=== PATIENT | male | born 1985 | race Caucasian/White ===

== ENCOUNTER 2020-12-14 13:05 | Inpatient (IN) | payer OTHER, SELFPAY ==
[2020-12-14] VITALS (12 sets, daily range): BP systolic 126–168; BP diastolic 85–102; PULSE 70–108; RESP 18–25; TEMP 36.8–38.3; O2SAT 72–98; BMI 54.2
--- NOTE | 2020-12-14 14:16 | XRR_ITS ---
PROCEDURE INFORMATION: Exam: XR Chest Exam date and time: 12/14/2020 2:16 PM Age: 35 years old Clinical indication: Patient HX: Coughing x 1 week; Additional info: Dypsnea TECHNIQUE: Imaging protocol: XR of the chest. Views: 1 view. COMPARISON: No relevant prior studies available. FINDINGS: Lungs: Moderate to severe bilateral pulmonary opacities which appear to be predominantly peripheral most consistent with Covid-19 pneumonia versus other viral pneumonia. Pleural spaces: Unremarkable. No pleural effusion. No pneumothorax. Heart/Mediastinum: Unremarkable. No cardiomegaly. Bones/joints: Unremarkable. XR/XR chest 1V portable [id number] IMPRESSION: Moderate to severe bilateral pulmonary opacities which appear to be predominantly peripheral most consistent with Covid-19 pneumonia versus other viral pneumonia.
--- NOTE | 2020-12-14 14:17 | PC.PHAR ---
pt and pts family states the pt takes no rx medications-states the pt has only been taking tylenol prn
--- NOTE | 2020-12-14 14:39 | ED_ITS ---
HPI - COVID General: Chief Complaint: COVID symptoms Stated Complaint: LOW 02 Time Seen by Provider: 12/14/20 14:03 Triage information: Has fever, cough or shortness of breath . No known COVID + exposure last 14 days History of Present Illness: HPI Narrative: 35-year-old male who presents to the emergency room with complaints of fever shortness of breath and cough some anosmia. He has not had any diarrhea. On presentation here he still has a low- grade fever he has used some Tylenol at home. He took 2 home Covid swabs [id number] antigen test both of which were negative. He has not been vaccinated nor is he previously been known to have Covid. He is mildly hypertensive on presentation here he is also noted to be hypoxic with an oxygen saturation at 70% on room air, initially improved into the 90s on 4 L/min o xygen. Patient sats decreased and is now requiring 6 L by nasal cannula in the ER to maintain his oxygen saturations. He has no known history of any chronic respiratory illnesses. MD complaint: has COVID symptoms Prior covid testing: yes, results known COVID 19 common symptoms: positive chills, cough, non-productive cough, dyspnea, fatigue, body aches, loss of sense of smell and/or taste, throat pain and nasal congestion; negative nausea, vomiting or diarrhea COVID 19 other sytmptoms: positive requiring oxygen; negative chest pain Onset (ago): day(s) Severity: mild Pertinent comorbid conditions: hypertension and obesity Treatment prior to arrival: acetaminophen COVID Results: SARS-CoV-2 Antigen (Rapid) Negative (Negative) 12/14/20 14:45 12/14/20 Nasal/Oral Coronavirus 2019 PCR Detected H 12/14/20 14:45 12/14/20 Review of Systems Const: Reports: chills, body aches and fatigue ENMT: Reports: throat pain and nasal congestion Card: Denies: chest pain, edema, dyspnea on exertion or orthopnea Resp: Reports: dyspnea and non-productive cough GI: Denies: abdominal pain, nausea, vomiting, hematemesis, coffee ground emesis, diarrhea, constipation, bloating, hematochezia or melena : Denies: flank pain, dysuria, urinary frequency or urinary urgency Skin/Breast: Denies: rash or pruritus [facility] PFSH: Medical History (Updated 12/16/20 @ 16:05 by Micheal Bates DO) No pertinent past medical history Surgical History (Updated 12/15/20 @ 15:17 by Flory Nick MD) No pertinent past surgical history Physical Exam Const: COMMON NORMALS: no acute distress GENERAL APPEARANCE: cooperative and comfortable ORIENTATION/CONSCIOUSNESS: Yes awake, Yes oriented to person, Yes oriented to place and Yes oriented to time HENMT: COMMON NORMALS: normocephalic, atraumatic and hearing grossly normal bilaterally HEAD & SCALP: normocephalic and atraumatic Resp: AUSCULTATION: crackles and diminished lung sounds Cardio: COMMON NORMALS: regular rhythm and No murmurs present (Cardio) RATE: tachycardic RHYTHM: regular rhythm GI: COMMON NORMALS: Soft to palpation and No hepatosplenomegaly present AUSCULTATION: Yes normoactive bowel sounds PALPATION: Yes Soft to palpation, No Tenderness to palpation present (GI), No Guarding due to palpation present (GI) and Yes No hepatosplenomegaly present Extremity: COMMON NORMALS: normal to inspection, capillary refill normal, no clubbing, cyanosis or edema, no calf tenderness and no pedal edema Neuro: SENSORIUM/ORIENTATION: Yes oriented to person, Yes oriented to place and Yes oriented to time Skin: COMMON NORMALS: no rashes or lesions noted GENERAL SKIN EXAM: no rashes or lesions noted Course Vital Signs: Vital signs: Vital Signs Temperature 98.5 F 12/16/20 10:00 Pulse Rate 96 12/16/20 14:16 Respiratory Rate 24 H 12/16/20 14:16 Blood Pressure 151/84 12/16/20 14:00 Pulse Oximetry 87 L 12/16/20 14:16 MDM - COVID MDM Narrative: Medical decision making narrative: Patient progressively worsened while in the emergency room initially was 72% on room air were able to improve that with nasal cannula initially required for the knee worsened requiring 6-week and switch him to heated high flow he is requiring 40 L/min. Chest x-ray is very convincing for Covid pneumonitis. He has no pulmonary emboli. Very concerning his rapid decline while in the emergency room receiving work-up. Reviewed findings with the patient initially he was demanding to be treated as an outpatient informed patient we could not get him enough oxygen in outpatient setting to maintain his oxygen sats and if he left the emergency room he would likely go into respiratory arrest and outside of the hospital setting would from that. Ultimately he did agree to stay. At his request I contacted his and reviewed the findings with her course of care. We star teresa him on remdesivir and dexamethasone as well as supplemental oxygen he likely will also need to be considered for Actemra which I reviewed with the patient and his discussed the hospitalist orders written. Lab Data: Labs: Lab Results 12/14/20 12/14/20 12/14/20 Range/Units 14:45 14:45 14:45 WBC 4.2 (4.0-10.0) 10^3/ uL RBC 5.23 (4.1-5.3) 10^6/u L Hgb 15.8 (11.7-16.6) g/dL Hct 46.0 (42.0-52.0) % MCV 88.0 (80-94) fl MCH 30.2 (28.0-34.0) pg MCHC 34.3 (30.0-36.0) g/dL RDW 13.2 (12.1-15.1) % Plt Count 149 (130-400) 10^3/c mm MPV 11.9 H (7.4-10.4) fL Neut % (Auto) 72.0 % Lymph % (Auto) 19.6 % Tucker % (Auto) 8.0 % Eos % (Auto) 0.0 % Baso % (Auto) 0.2 % Neut # (Auto) 3.04 (1.8-7.7) 10^3/u L Lymph # (Auto) 0.8 (0.8-4.8) 10^3/u L Tucker # (Auto) 0.3 (0.2-0.9) 10^3/u L Eos # (Auto) 0.0 (0.0-0.8) 10^3/u L Baso # (Auto) 0.0 (0.0-0.1) 10^3/u L Nucleated RBC % (a uto) 0 % Nucleated RBCs # 0.0 /100WBC D-Dimer Cancelled Specimen Type Arterial Sample Site Brachial, left ABG pH 7.47 H (7.35-7.45) ABG pCO2 40.3 (35-45) mmHg ABG pO2 59.1 L (80.0-100.0) mmH g ABG HCO3 29.0 H (22-26) mmol/L ABG Base Excess 4.8 H (-2.0-2.0) mmol/ L Dewayne Test Pos Hematocrit 50.1 (42-52) % O2 Delivery Device Nc O2 Liters/Min 6.0 % Group Fitness Assistant Department Head ID Cak Sodium Potassium Chloride Carbon Dioxide Anion Gap BUN Creatinine GFR Calculation Glucose Calculated Osmolal ity Lactic Acid Calcium Total Bilirubin AST ALT Alkaline Phosphata se Troponin T Gen 5 n g/L (0-15) ng/L C-Reactive Protein Total Protein Albumin Globulin Procalcitonin Nasal/Oral COVID-1 9 PCR SARS-CoV-2 Ag (Rap id) (Negative) 12/14/20 12/14/20 12/14/20 Range/Units 14:45 14:45 14:45 WBC (4.0-10.0) 10^3/ uL RBC (4.1-5.3) 10^6/u L Hgb (11.7-16.6) g/dL Hct (42.0-52.0) % MCV (80-94) fl MCH (28.0-34.0) pg MCHC (30.0-36.0) g/dL RDW (12.1-15.1) % Plt Count (130-400) 10^3/c mm MPV (7.4-10.4) fL Neut % (Auto) % Lymph % (Auto) % Tucker % (Auto) % Eos % (Auto) % Baso % (Auto) % Neut # (Auto) (1.8-7.7) 10^3/u L Lymph # (Auto) (0.8-4.8) 10^3/u L Tucker # (Auto) (0.2-0.9) 10^3/u L Eos # (Auto) (0.0-0.8) 10^3/u L Baso # (Auto) (0.0-0.1) 10^3/u L Nucleated RBC % (a uto) % Nucleated RBCs # /100WBC D-Dimer Specimen Type Sample Site ABG pH (7.35-7.45) ABG pCO2 (35-45) mmHg ABG pO2 (80.0-100.0) mmH g ABG HCO3 (22-26) mmol/L ABG Base Excess (-2.0-2.0) mmol/ L Dewayne Test Hematocrit (42-52) % O2 Delivery Device O2 Liters/Min % Group Fitness Assistant Department Head ID Sodium Cancelled Potassium Cancelled Chloride Cancelled Carbon Dioxide Cancelled Anion Gap Cancelled BUN Cancelled Creatinine Cancelled GFR Calculation Cancelled Glucose Cancelled Calculated Osmolal ity Cancelled Lactic Acid Cancelled Calcium Cancelled Total Bilirubin Cancelled AST Cancelled ALT Cancelled Alkaline Phosphata se Cancelled Troponin T Gen 5 n g/L (0-15) ng/L C-Reactive Protein Cancelled Total Protein Cancelled Albumin Cancelled Globulin Cancelled Procalcitonin Cancelled Nasal/Oral COVID-1 9 PCR Detected H SARS-CoV-2 Ag (Rap id) (Negative) 12/14/20 12/14/20 12/14/20 Range/Units 14:45 15:29 15:29 WBC (4.0-10.0) 10^3/ uL RBC (4.1-5.3) 10^6/u L Hgb (11.7-16.6) g/dL Hct (42.0-52.0) % MCV (80-94) fl MCH (28.0-34.0) pg MCHC (30.0-36.0) g/dL RDW (12.1-15.1) % Plt Count (130-400) 10^3/c mm MPV (7.4-10.4) fL Neut % (Auto) % Lymph % (Auto) % Tucker % (Auto) % Eos % (Auto) % Baso % (Auto) % Neut # (Auto) (1.8-7.7) 10^3/u L Lymph # (Auto) (0.8-4.8) 10^3/u L Tucker # (Auto) (0.2-0.9) 10^3/u L Eos # (Auto) (0.0-0.8) 10^3/u L Baso # (Auto) (0.0-0.1) 10^3/u L Nucleated RBC % (a uto) % Nucleated RBCs # /100WBC D-Dimer 1.34 H Specimen Type Sample Site ABG pH (7.35-7.45) ABG pCO2 (35-45) mmHg ABG pO2 (80.0-100.0) mmH g ABG HCO3 (22-26) mmol/L ABG Base Excess (-2.0-2.0) mmol/ L Dewayne Test Hematocrit (42-52) % O2 Delivery Device O2 Liters/Min % Group F[employer] Assistant Department Head ID Sodium Potassium Chloride Carbon Dioxide Anion Gap BUN Creatinine GFR Calculation Glucose Calculated Osmolal ity Lactic Acid 1.1 Calcium Total Bilirubin AST ALT Alkaline Phosphata se Troponin T Gen 5 n g/L (0-15) ng/L C-Reactive Protein Total Protein Albumin Globulin Procalcitonin Nasal/Oral COVID-1 9 PCR SARS-CoV-2 Ag (Rap id) Negative (Negative) 12/14/20 12/14/20 Range/Units 15:29 15:29 WBC (4.0-10.0) 10^3/ uL RBC (4.1-5.3) 10^6/u L Hgb (11.7-16.6) g/dL Hct (42.0-52.0) % MCV (80-94) fl MCH (28.0-34.0) pg MCHC (30.0-36.0) g/dL RDW (12.1-15.1) % Plt Count (130-400) 10^3/c mm MPV (7.4-10.4) fL Neut % (Auto) % Lymph % (Auto) % Tucker % (Auto) % Eos % (Auto) % Baso % (Auto) % Neut # (Auto) (1.8-7.7) 10^3/u L Lymph # (Auto) (0.8-4.8) 10^3/u L Tucker # (Auto) (0.2-0.9) 10^3/u L Eos # (Auto) (0.0-0.8) 10^3/u L Baso # (Auto) (0.0-0.1) 10^3/u L Nucleated RBC % (a uto) % Nucleated RBCs # /100WBC D-Dimer Specimen Type Sample Site ABG pH (7.35-7.45) ABG pCO2 (35-45) mmHg ABG pO2 (80.0-100.0) mmH g ABG HCO3 (22-26) mmol/L ABG Base Excess (-2.0-2.0) mmol/ L Dewayne Test Hematocrit (42-52) % O2 Delivery Device O2 Liters/Min % Group F[employer] Assistant Department Head ID Sodium 134 L Potassium 3.9 Chloride 94 L Carbon Dioxide 29 Anion Gap 14.9 BUN 6 Creatinine 0.7 GFR Calculation 129.9 Glucose 170 H Calculated Osmolal ity 280 L Lactic Acid Calcium 8.3 L Total Bilirubin 0.4 AST 96 H ALT 56 H Alkaline Phosphata se 48 Troponin T Gen 5 n g/L 6 (0-15) ng/L C-Reactive Protein 131.9 H Total Protein 7.2 Albumin 3.4 L Globulin 3.8 Procalcitonin 0.25 Nasal/Oral COVID-1 9 PCR SARS-CoV-2 Ag (Rap id) (Negative) COVID Results: SARS-CoV-2 Antigen (Rapid) Negative (Negative) 12/14/20 14:45 12/14/20 Nasal/Oral Coronavirus 2019 PCR Detected H 12/14/20 14:45 12/14/20 Discharge Plan Discharge Patient Disposition: Home Admit Provider: Flory Nick Clinical Impression: Pneumonia due to 2019-nCoV, Hypoxia, Morbid obesity, Respiratory failure Condition: Stable Coding Level of Care Code ED Beater Tender for Chg Fwd Exam Comprehensive
[2020-12-14 14:56] LABS: ABG PCO2 40.3 mmHg (35-45); ABG PH Result 7.47 (7.35-7.45); Arterial Blood Gas Hematocrit 50.1 % (42-52); Base Excess ABG 4.8 mmol/L (-2.0-2.0); Blood Gas Allen Test Pos; Blood Gas Operator Identificat CAK; Blood Gas Sample Site Brachial, left; Blood Gas Sample Type Arterial; Oxygen Device NC; PO2 ABG 59.1 mmHg (80.0-100.0)
[2020-12-14 14:59] LABS: Basophils % 0.2 %; Hemoglobin 15.8 g/dL (11.7-16.6); Lymphocytes # 0.8 10^3/uL (0.8-4.8); Lymphocytes % 19.6 %; Mean Corpuscular HGB Conc 34.3 g/dL (30.0-36.0); Mean Corpuscular Hemoglobin 30.2 pg (28.0-34.0); Mean Platelet Volume 11.9 fL (7.4-10.4); Monocytes # 0.3 10^3/uL (0.2-0.9); Neutrophils # 3.04 10^3/uL (1.8-7.7); Nucleated Red Blood Cells % 0 %; Platelet Count 149 10^3/cmm (130-400); Red Blood Count 5.23 10^6/uL (4.1-5.3); Red Cell Distribution Width 13.2 % (12.1-15.1); White Blood Count 4.2 10^3/uL (4.0-10.0)
[2020-12-14 15:31] LABS: SARS Covid-2 Antigen Negative (Negative)
[2020-12-14 15:54] LABS: D Dimer 1.34 ug/mIFEU (0-0.59)
--- NOTE | 2020-12-14 15:57 | CTR_ITS ---
PROCEDURE INFORMATION: Exam: CTA Chest With Contrast Exam date and time: 12/14/2020 3:57 PM Age: 35 years old Clinical indication: Cough and shortness of breath; Patient HX: Best images due to body habitus and iv location in left wrist; Additional info: Covid/hypoxia TECHNIQUE: Imaging protocol: Computed tomographic angiography of the chest with contrast. 3D rendering (Not supervised by radiologist): MIP and/or 3D reconstructed images were created by the technologist. Radiation optimization: All CT scans at this facility use at least one of these dose optimization techniques: automated exposure control; mA and/or kV adjustment per patient size (includes targeted exams where dose is matched to clinical indication); or iterative reconstruction. Contrast material: OMNI 350; Contrast volume: 95 ml; Contrast route: INTRAVENOUS (IV); COMPARISON: CR (CHEST, ) 12/14/2020 2:27 PM RADIATION DOSE METRICS: Total DLP (mGy-cm): 1460.61 FINDINGS: Pulmonary arteries: No pulmonary embolus or aortic dissection. Aorta: Unremarkable. No aortic aneurysm. No aortic dissection. Lungs: Multiple rounded geographic ground-glass opacities with some consolidation consistent with moderate to severe bilateral Covid-19 pneumonia versus other viral pneumonia. Pleural spaces: Unremarkable. No pneumothorax. No pleural effusion. Heart: Unremarkable. No cardiomegaly. No pericardial effusion. Lymph nodes: Unremarkable. No enlarged lymph nodes. Liver: Severe fatty infiltration of the liver. Moderate hepatosplenomegaly impression. 25 cm hepatomegaly. Spleen: 16.6 x 13.8 cm moderate splenomegaly. Bones/joints: Mild thoracic spondylosis. Soft tissues: Unremarkable. CT/CT angio chest PE protcl [id number] IMPRESSION: 1. Multiple rounded geographic ground-glass opacities with some consolidation consistent with moderate to severe bilateral Covid-19 pneumonia versus other viral pneumonia. 2. Severe fatty infiltration of the liver. 3. No pulmonary embolus or aortic dissection. Radiation Dose CTDIVOL = (mGy): DLP = 1460.61 (mGy-cm)
[2020-12-14 15:58] LABS: Lactic Sepsis W/Reflex 1.1 mmol/L (0.5-2.2)
[2020-12-14 16:06] LABS: Alanine Aminotransferase 56 U/L (0-41); Albumin Level 3.4 g/dL (3.5-5.2); Alkaline Phosphatase 48 IU/L (40-130); Anion Gap 14.9 (5-19); Aspartate Amino Transferase 96 U/L (0-40); Blood Urea Nitrogen 6 mg/dL (6-20); C Reactive Protein 131.9 mg/L (0.0-4.9); Calcium 8.3 mg/dL (8.5-10.5); Carbon Dioxide 29 mmol/L (22-29); Chloride 94 mmol/L (98-107); Globulin 3.8 g/dL (1.3-4.6); Glomerular Filtration Rate 129.9 mL/min (90-130); Glucose 170 mg/dL (65-115); Osmolality Calculated 280 mOsm/kg (285-295); Potassium 3.9 mmol/L (3.5-5.1); Sodium 134 mmol/L (136-145); Total Bilirubin 0.4 mg/dL (0.15-1.2); Total Protein 7.2 g/dL (6.6-8.7)
[2020-12-14 16:12] LABS: Procalcitonin 0.25 ng/mL (0-0.5)
[2020-12-14] MEDS: dexamethasone 10 mg/mL INJ 6 MG IVP (16:27)
[2020-12-14] MEDS: remdesivir 200 MG in sodium chloride 0.9% (100 ml) 60 ML 100 MG IV (16:28)
[2020-12-14] MEDS: acetaminophen 1,000 MG/100 ML PIGGYBACK 400 MG IV (18:24)
[2020-12-14] MEDS: iohexol 350 mg/mL 100 mL Btl IV (20:05)
--- NOTE | 2020-12-14 20:23 | P.HP_ITS ---
Providers/Chief Complaint Admitting Physician: Flory Nick MD Chief Complaint: LOW 02 History of Present Illness Ricardo Don is a 35 year old male presenting with one week of fever, chills, shortness of breath and anosmia over the past week. On presentation here he was noted to be hypoxic with an oxygen saturation at 72 L/min on room air. Patient was initially requiring 6 L by nasal cannula with 02 saturation escalating quic kly to heated hi flow 70% fi02 at 40lpm. CTA chest negative for PE, however shows extensive diffuse B/L GGOs concerning COVID 19 pneumonia. Rapid Covid Ag negative, PCR sent and pending. He has been started on steorids and received first dose remdisivir 200mg x 1. Review of Systems General: Reports: 10 or more systems reviewed and unremarkable except in HPI and below Const: Reports: fever(s), chills and body aches Eyes: Denies: change in vision or blurry vision ENMT: Reports: hoarseness; Denies: throat pain, enlarged tonsils, odynophagia or nasal congestion Card: Denies: chest pain, palpitations, irregular heart rhythm, edema, swelling of feet/ankles, lightheadedness, pre-syncope, dyspnea on exertion or orthopnea Resp: Denies: dyspnea, productive cough, non-productive cough, wheezing, s tridor, pain on inspiration, change in phlegm color, hemoptysis or chest congestion GI: Denies: abdominal pain, nausea, vomiting, hematemesis, coffee ground emesis, dysphagia, heartburn, diarrhea, constipation, GI cramping, change in stool character, hematochezia or melena : Denies: flank pain, dysuria, urinary frequency, urinary urgency, urinary hesitancy or hematuria Musc: Denies: neck pain, back pain, extremity pain, joint swelling, joint warmth or deformity Neuro: Denies: headache(s), numbness in extremities, weakness in extremities, sensory changes, difficulty walking, frequent falls, dizziness, vertigo, behavioral changes, Slurred speech present or seizure-like activity Psych: Denies: anxiety, depression, suicidal ideation or homicidal ideation Endo: Denies: polyuria, polydipsia, tired all the time, cold intolerance or hot flashes Santana/Lymph: Denies: easy bruising or easy bleeding Medications/Allergies Home Medications Medication Instructions Recorded Confirmed Last Taken Type acetaminophen [Tylenol Extra 1,000 mg PO Q8H PRN 12/14/20 12/14/20 12/14/20 09:00 History Strength] Allergies Allergy/AdvReac Type Severity Reaction Status Date / Time No Known Allergies Allergy Unverified 12/14/20 14:17 Vitals/I&O/Wt Last Vital Signs Temp 99.3 F 12/14/20 20:20 Pulse 90 12/14/20 20:20 Resp 20 H 12/14/20 20:20 BP 145/85 12/14/20 20:20 Pulse Ox 95 12/14/20 20:20 Weight last 48 hrs Weight 181.437 kg Physical Exam Narrative: EXAM NARRATIVE: General: AO x3, currently on heated Hi flow HEENT: PERRLA, pupils bilaterally equal and reactive, pallors not present Chest: B/L coarse breath sounds CVS: S1-S2 regular, no murmurs, no tachycardia, no gallops, no rubs Abdomen: Soft, nontender, no organomegaly, bowel sounds present Neuro: No focal deficits, no facial deformity, AO x3, power 5/5 in all limbs Data : 12/14/20 14:45 12/14/20 15:29 Other Labs: Laboratory Results WBC 4.2 10^3/uL (4.0-10.0) 12/14/20 14:45 RBC 5.23 10^6/uL (4.1-5.3) 12/14/20 14:45 Hgb 15.8 g/dL (11.7-16.6) 12/14/20 14:45 Hct 46.0 % (42.0-52.0) 12/14/20 14:45 MCV 88.0 fl (80-94) 12/14/20 14:45 MCH 30.2 pg (28.0-34.0) 12/14/20 14:45 MCHC 34.3 g/dL (30.0-36.0) 12/14/20 14:45 RDW 13.2 % (12.1-15.1) 12/14/20 14:45 Plt Count 149 10^3/cmm (130-400) 12/14/20 14:45 MPV 11.9 fL (7.4-10.4) H 12/14/20 14:45 Neut % (Auto) 72.0 % 12/14/20 14:45 Lymph % (Auto) 19.6 % 12/14/20 14:45 [place] % (Auto) 8.0 % 12/14/20 14:45 Eos % (Auto) 0.0 % 12/14/20 14:45 Baso % (Auto) 0.2 % 12/14/20 14:45 Neut # (Auto) 3.04 10^3/uL (1.8-7.7) 12/14/20 14:45 Lymph # (Auto) 0.8 10^3/uL (0.8-4.8) 12/14/20 14:45 [place] # (Auto) 0.3 10^3/uL (0.2-0.9) 12/14/20 14:45 Eos # (Auto) 0.0 10^3/uL (0.0-0.8) 12/14/20 14:45 Baso # (Auto) 0.0 10^3/uL (0.0-0.1) 12/14/20 14:45 Nucleated RBC % (auto) 0 % 12/14/20 14:45 Nucleated RBCs # 0.0 /100WBC 12/14/20 14:45 D-Dimer 1.34 ug/mIFEU (0-0.59) H 12/14/20 15:29 Specimen Type Arterial 12/14/20 14:45 Sample Site Brachial, left 12/14/20 14:45 ABG pH 7.47 (7.35-7.45) H 12/14/20 14:45 ABG pCO2 40.3 mmHg (35-45) 12/14/20 14:45 ABG pO2 59.1 mmHg (80.0-100.0) L 12/14/20 14:45 ABG HCO3 29.0 mmol/L (22-26) H 12/14/20 14:45 ABG Base Excess 4.8 mmol/L (-2.0-2.0) H 12/14/20 14:45 Dewayne Test Pos 12/14/20 14:45 Hematocrit 50.1 % (42-52) 12/14/20 14:45 O2 Delivery Device Nc 12/14/20 14:45 O2 Liters/Min 6.0 % 12/14/20 14:45 Supervisor Tank Storage ID Cak 12/14/20 14:45 Sodium 134 mmol/L (136-145) L 12/14/20 15:29 Potassium 3.9 mmol/L (3.5-5.1) 12/14/20 15:29 Chloride 94 mmol/L (98-107) L 12/14/20 15:29 Carbon Dioxide 29 mmol/L (22-29) 12/14/20 15:29 Anion Gap 14.9 (5-19) 12/14/20 15:29 BUN 6 mg/dL (6-20) 12/14/20 15:29 Creatinine 0.7 mg/dL (0.7-1.2) 12/14/20 15:29 GFR Calculation 129.9 mL/min (90-130) 12/14/20 15:29 Glucose 170 mg/dL (65-115) H 12/14/20 15:29 Calculated Osmolality 280 mOsm/kg (285-295) L 12/14/20 15:29 Lactic Acid 1.1 mmol/L (0.5-2.2) 12/14/20 15:29 Calcium 8.3 mg/dL (8.5-10.5) L 12/14/20 15:29 Total Bilirubin 0.4 mg/dL (0.15-1.2) 12/14/20 15:29 AST 96 U/L (0-40) H 12/14/20 15:29 ALT 56 U/L (0-41) H 12/14/20 15:29 Alkaline Phosphatase 48 IU/L (40-130) 12/14/20 15:29 C-Reactive Protein 131.9 mg/L (0.0-4.9) H 12/14/20 15:29 Total Protein 7.2 g/dL (6.6-8.7) 12/14/20 15:29 Albumin 3.4 g/dL (3.5-5.2) L 12/14/20 15:29 Globulin 3.8 g/dL (1.3-4.6) 12/14/20 15:29 Procalcitonin 0.25 ng/mL (0-0.5) 12/14/20 15:29 SARS-CoV-2 Ag (Rapid) Negative (Negative) 12/14/20 14:45 Impressions Chest X-Ray 12/14/20 14:16 IMPRESSION: Moderate to severe bilateral pulmonary opacities which appear to be predominantly peripheral most consistent with Covid-19 pneumonia versus other viral pneumonia. Chest CTA 12/14/20 15:57 IMPRESSION: 1. Multiple rounded geographic ground-glass opacities with some consolidation consistent with moderate to severe bilateral Covid-19 pneumonia versus other viral pneumonia. 2. Severe fatty infiltration of the liver. 3. No pulmonary embolus or aortic dissection. Radiation Dose CTDIVOL = (mGy): DLP = 1460.61 (mGy-cm) 12/14/20 14:45 ABG pH 7.47 H ABG pCO2 40.3 ABG pO2 59.1 L ABG HCO3 29.0 H ABG Base Excess 4.8 H Micro: Microbiology 12/14/20 14:44 Blood Culture - Preliminary Blood SPECIMEN COLLECTED 12/14/20 14:45 Blood Culture - Preliminary Blood SPECIMEN COLLECTED A&P Assessment and plan (1) Pneumonia: Status: Acute Qualifiers: Pneumonia type: due to unspecified organism Laterality: bilateral Lung location: unspecified part of lung Qualified Code(s): J18.9 - Pneumonia, unspecified organism (2) Hypoxia: Status: Acute Additional A&P Information B/L pneumonia with one week history of fever, chills, myalgias with CT chest with B/L extensive infiltrates concerning for COVID 19 pneumonia Awaiting confirmatory PCR testing , rapid Ag negative Dexamethasone 6 mg iv daily. Remdesivir 200mg iv received in ER, further doses based on COVID 19 PCR testing. Scheduled nebulization with duonebs and budesonide Pulmonary toilet with incentive spirometry flutter valve. We will monitor inflammatory markers including CRP, D-dimer. D-dimer elevated. CTA negative for pulmonary embolism. Supplemental 02 to keep saturation >92% Bipap prn DVT ppx: Lovenox 40 Full code Attestations Medical Necessity Statement*: requires >2midnight admission for treatment of B/L pneumonia with hypoxics respiratory failure, suspected 2/2 COVID 19 pneumonia Coding Level of Care Code Acute Patient Care Provider for [facility] Diagnoses Pneumonia J18.9 Pneumonia type: due to unspecified organism Laterality: bilateral Lung location: unspecified part of lung Hypoxia R09.02
[2020-12-14 21:10] LABS: Troponin T (5th) Once 6 ng/L (0-15)
--- NOTE | 2020-12-14 22:32 | PC.NURSE ---
Patient arrived to ICU from ER at 2205.
[2020-12-14] MEDS: cefTRIAXone 1,000 MG in sodium chloride 0.9% (plus) 50 ML 100 MG IV (22:47)
[2020-12-14] MEDS: enoxaparin 40 mg/0.4 mL Syringe SUBCUT (22:50)
[2020-12-14] MEDS: dexamethasone 4 mg/mL INJ 6 MG IVP (23:22)
[2020-12-14] MEDS: azithromycin 500 MG in sodium chloride 0.9% 250 ML 250 MG IV (23:23)
[2020-12-14] MEDS: ipratropium-albuterol 3 mL Neb INHALATION (23:49)
[2020-12-15] VITALS (201 sets, daily range): BP systolic 122–226; BP diastolic 70–123; PULSE 69–133; RESP 7–35; TEMP 36.8–37.7; O2SAT 77–95
[2020-12-15] MEDS: amlodipine 10 mg Tablet PO (03:11)
[2020-12-15] MEDS: ipratropium-albuterol 3 mL Neb INHALATION ×4 (03:43→20:35)
[2020-12-15 05:54] LABS: Hematocrit 46.5 % (42.0-52.0); Hemoglobin 15.6 g/dL (11.7-16.6); Lymphocytes # 0.4 10^3/uL (0.8-4.8); Lymphocytes % 11.7 %; Mean Corpuscular HGB Conc 33.5 g/dL (30.0-36.0); Mean Corpuscular Hemoglobin 30.2 pg (28.0-34.0); Mean Corpuscular Volume 89.9 fl (80-94); Mean Platelet Volume 10.5 fL (7.4-10.4); Monocytes # 0.2 10^3/uL (0.2-0.9); Monocytes % 6.1 %; Neutrophils # 2.52 10^3/uL (1.8-7.7); Neutrophils % 81.6 %; Nucleated Red Blood Cells % 0 %; Platelet Count 180 10^3/cmm (130-400); Red Blood Count 5.17 10^6/uL (4.1-5.3); Red Cell Distribution Width 12.9 % (12.1-15.1); White Blood Count 3.1 10^3/uL (4.0-10.0)
[2020-12-15 06:17] LABS: Alanine Aminotransferase 54 U/L (0-41); Albumin Level 3.1 g/dL (3.5-5.2); Alkaline Phosphatase 47 IU/L (40-130); Anion Gap 15.5 (5-19); Aspartate Amino Transferase 76 U/L (0-40); Blood Urea Nitrogen 7 mg/dL (6-20); C Reactive Protein 169.5 mg/L (0.0-4.9); Calcium 8.1 mg/dL (8.5-10.5); Carbon Dioxide 26 mmol/L (22-29); Chloride 95 mmol/L (98-107); Globulin 4.2 g/dL (1.3-4.6); Glomerular Filtration Rate 191.5 mL/min (90-130); Glucose 253 mg/dL (65-115); Lactate Dehydrogenase 672 U/L (135-225); NT Pro B Type Natriuretic Pept 11 pg/mL (0-125); Osmolality Calculated 281 mOsm/kg (285-295); Potassium 4.5 mmol/L (3.5-5.1); Sodium 132 mmol/L (136-145); Total Bilirubin 0.4 mg/dL (0.15-1.2); Total Protein 7.3 g/dL (6.6-8.7)
--- NOTE | 2020-12-15 07:00 | PC.NURSE ---
Shift Note Frequent safety and comfort rounds continue. Orders and/or nursing care completed as indicated. Patient monitored for response to intervention and treatment(s). Education provided includes[]. Patient and/or logistics service representative [ResponseToTeaching]. Will continue to monitor. Patient arrived shortly before midnight. He was moved from a non-rebreather to BiPAP. His oxygen saturation remained in the 90's and the patient remained mostly relaxed during the shfit. Alert and oriented X4 (person, place, time, and situation). There were several nurses that attempted to put in an IV but were unsuccessful. When he was using the urinal he knocked his only IV out. the patient steadily during the night became more hypertensive. Part of it could have been from him constantly moving his arm when the blood pressure cuff would go off. His SBP was constantly between 160-183. I received a one time dose of Amlodipine 10 mg PO. It had little affect on his blood pressure. His systolic blood pressure right before shift change was as high as 220. Mack, day shift nurse, attempted twice to put in an IV, but was also unsuccessful. The patient remains in good spirits and was cooperative the entire time. The patients called right before shift change and was updated on her spouses status.
[2020-12-15 07:08] LABS: D Dimer 1.05 ug/mIFEU (0-0.59)
[2020-12-15] MEDS: pantoprazole DR 40 mg Tablet PO (08:02)
[2020-12-15] MEDS: budesonide 0.5 mg/2 mL Neb INHALATION ×2 (08:59→20:35)
[2020-12-15] MEDS: LORazepam 2 mg/mL INJ 1 mL 0.5 MG IVP (14:28)
--- NOTE | 2020-12-15 15:15 | PM.PN ---
Subjective Subjective: Interval history: P reviewed, patient was on BiPAP 75% which was transitioned to heated high flow in order to give him a break from BiPAP and let him eat, also spoke with his who had multiple questions, answered to her satisfaction, today started baricitinib 4 mg for 14 days Vitals/I&O/Wt Last Vital Signs Temp 98.3 F 12/15/20 04:00 Pulse 89 12/15/20 14:22 Resp 22 H 12/15/20 14:22 BP 160/91 12/15/20 09:30 Pulse Ox 87 L 12/15/20 14:22 12/15/20 12/15/20 12/15/20 06:59 14:59 22:59 Intake Total 400 / 560 1100 / 1100 Output Total 700 / 700 950 / 950 Balance -300 / -140 1100 / 1100 -950 / 150 Weight last 48 hrs Weight 181.437 kg Physical Exam Narrative: EXAM NARRATIVE: Morbidly obese male currently on heated high flow 50 L 90% Tachypnea rate 20-25 lung auscultation revealed mild inspiratory crepitations with rhonchi Worse at the bases S1, S2 sinus rhythm Abdomen visceral obesity nontender Lower extremity no edema EOMI, PERRLA No neurological deficits Data : 12/15/20 04:55 12/15/20 04:55 Micro: Microbiology 12/14/20 15:10 Gram Stain - Final Sputum - Expectorated Sputum Sputum Culture - Preliminary 12/14/20 14:44 Blood Culture - Preliminary Blood SPECIMEN COLLECTED 12/14/20 14:45 Blood Culture - Preliminary Blood SPECIMEN COLLECTED A&P Assessment and plan (1) Hypoxia: Status: Acute (2) Pneumonia: Status: Acute Qualifiers: Pneumonia type: due to unspecified organism Laterality: bilateral Lung location: unspecified part of lung Qualified Code(s): J18.9 - Pneumonia, unspecified organism (3) Morbid obesity: Status: Acute Additional A&P Information Acute hypoxia related to COVID-19 Leukopenia noted high D-dimer, CTA rule out PE Afebrile Currently on 50 L 90% heated high flow transition from BiPAP on BiPAP he was requiring 75% Tachypnea would use Ativan Continue multivitamins, remdesivir and Decadron Add baricitinib CRP in 160s, 14-day regimen Considering high BMI and higher O2 requirement I would like to keep him in ICU for closer monitoring updated High risk for deterioration DVT prophylaxis currently on Lovenox 30mg twice daily because of BMI Consistent carb diet Full code(however patient was reluctant to allow us to intubate in case of cardiorespiratory arrest however when I explained him what CPR and intubation means and it could be a temporary means to provide him oxygenation then he agreed for chest compression and intubation, he will remain full code in the EMR.) Attestations Medical Necessity Statement*: Continue ICU management High risk of deterioration Time Spent in Patient Care: Greater than 35 minutes Coding Level of Care Code 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
[2020-12-15 16:06] LABS: Coronavirus Test Green County Detected
[2020-12-15] MEDS: enoxaparin 30 mg/0.3 mL Syringe SUBCUT (16:50)
[2020-12-15] MEDS: ascorbic acid 500 mg Tablet PO (17:39)
--- NOTE | 2020-12-15 19:13 | PC.NURSE ---
Shift Note Frequent safety and comfort rounds continue. Orders and nursing care completed as indicated. Pt labs came back positive for COVID. Orders for remdesivir treatment. Pt remains on HHF at 50L with FiO2 of 95%. Pt worked with Physical Therapy today and sat up on side of bed and up to bed side commode. Pt had BM and 950ml out in urine this shift. came to visit today and spoke eith physician regarding plan of care, verbalized understanding. Patient monitored for response to intervention and treatments. Will continue to monitor.
[2020-12-15] MEDS: remdesivir 100 MG in sodium chloride 0.9% (100 ml) 100 ML IV (19:45)
[2020-12-15] MEDS: dexamethasone 4 mg/mL INJ 6 MG IVP (22:14)
[2020-12-16] VITALS (116 sets, daily range): BP systolic 114–167; BP diastolic 72–107; PULSE 71–111; RESP 17–34; TEMP 36.9–37.6; O2SAT 78–93
[2020-12-16] MEDS: ipratropium-albuterol 3 mL Neb INHALATION ×3 (02:47→22:00)
[2020-12-16] MEDS: enoxaparin 30 mg/0.3 mL Syringe SUBCUT ×2 (04:44→15:12)
[2020-12-16] MEDS: levoFLOXacin 750 mg Tablet PO (05:10)
[2020-12-16 05:13] LABS: Hematocrit 45.7 % (42.0-52.0); Hemoglobin 15.2 g/dL (11.7-16.6); Lymphocytes # 0.4 10^3/uL (0.8-4.8); Lymphocytes % 10.8 %; Mean Corpuscular HGB Conc 33.3 g/dL (30.0-36.0); Mean Corpuscular Volume 90.3 fl (80-94); Mean Platelet Volume 10.4 fL (7.4-10.4); Monocytes # 0.3 10^3/uL (0.2-0.9); Monocytes % 8.7 %; Neutrophils # 3.04 10^3/uL (1.8-7.7); Neutrophils % 80.2 %; Nucleated Red Blood Cells % 0 %; Platelet Count 215 10^3/cmm (130-400); Red Blood Count 5.06 10^6/uL (4.1-5.3); White Blood Count 3.8 10^3/uL (4.0-10.0)
[2020-12-16 05:30] LABS: Blood Urea Nitrogen 8 mg/dL (6-20); C Reactive Protein 63.9 mg/L (0.0-4.9); Calcium 8.3 mg/dL (8.5-10.5); Carbon Dioxide 27 mmol/L (22-29); Chloride 95 mmol/L (98-107); Glomerular Filtration Rate 191.5 mL/min (90-130); Glucose 367 mg/dL (65-115); Osmolality Calculated 291 mOsm/kg (285-295); Sodium 134 mmol/L (136-145)
--- NOTE | 2020-12-16 07:00 | PC.NURSE ---
Shift Note Frequent safety and comfort rounds continue. Orders and/or nursing care completed as indicated. Patient monitored for response to intervention and treatment(s). Education provided includes[]. 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 Will continue to monitor. The patient had a good night and there were no complications that occurred. He was on the heated HiFLO nasal cannula when I got on shift and we put him on BiPAP right after med pass. His oxygen saturation remained anywhere from 86-94%. He never became systematic when his oxygen dipped down to the mid 80's, he remained calm.
[2020-12-16] MEDS: pantoprazole DR 40 mg Tablet PO (08:31)
[2020-12-16] MEDS: ascorbic acid 500 mg Tablet PO ×2 (08:31→17:58)
[2020-12-16] MEDS: zinc gluconate 50 mg Tablet PO (08:31)
[2020-12-16] MEDS: cholecalciferol (vitamin D3) 1,000 unit Tablet 1000 UNIT PO (08:31)
[2020-12-16] MEDS: budesonide 0.5 mg/2 mL Neb INHALATION ×2 (08:47→22:00)
--- NOTE | 2020-12-16 09:28 | PC.CHAP ---
Pastoral Care Encounter/Spiritual Assessment Type of Contact [] Declined hazmat technician visit [] Patient/Family/Request visit [] Outpatient visit [] Follow-up visit [] Physician referral [] Code/Alert [x] Routine visit [] Staff referral [] Actively dying [] Patient sleeping [] Family support [] [] Out of room [] Palliative care [] [] Receiving care in room [] Pre-surgical visit [] Trauma [] Long length of stay [x] ICU visit [] Other: Relational/Emotional Strength [] Patient feels connected with others/family/visitors/staff [] Distress [] Loneliness/isolation [] Abandonment Spirituality of Patient [] Person of Margarita [] Attends Denominational of their Margarita [] Believes in Prayer [] Reads Bible or Sikhism materials [] There are Spiritual issues to be addressed Museum Or Zoo Director Interventions [x] Prayer [] Active listening [] Non-anxious presence [] Spiritual/emotional support [] Crisis/trauma care [] Spiritual counseling [] Bereavement support [] Provided bereavement packet [] Provided Bible/devotional materials [] Provided toy/stuffed animal, coloring book to patient or family member [] Provided Communion [] Anointing/[place] [] Salvation [x] Completed spiritual assessment [] Other: Impact on Illness or Injury [] Angry [] Fearful [] Anxious [] Often cries [] Exhaustion [] Unable to work [] Unable to attend cheondoism [] Unable to walk/stand [] Unable to read [] Unable to drive [] Unable to eat/drink [] Unable to sleep [] Unable to be with family [] Patient intubated [] Other: Summary Time spent with patient
--- NOTE | 2020-12-16 10:04 | PC.NURSE ---
Patient was placed on Heated high flow at 95% this AM. Patient was able to transfer self to chair to eat breakfast. Oxygen did drop to low 80's but was able to recover to high 80's. Call light in reach.
--- NOTE | 2020-12-16 14:39 | XR_ITS ---
WS: [id number] Portable AP upright chest, 12/16/2020 Clinical Data: hypoxia Comparison: Portable chest, 12/14/2020. Findings: The diffuse patchy bilateral pulmonary opacities have not changed. The heart remains normal . Monitor leads are on the chest wall. XR/XR chest 1V portable [id number] Impression: No change in patchy bilateral pulmonary opacities most consistent with pneumoni a.
--- NOTE | 2020-12-16 14:51 | P.PN_ITS ---
Subjective Subjective: Interval history: -500 fluid balance Afebrile Leukopenia O2 requirement has increased to 95% heated high flow 55 L Patient did use BiPAP overnight FiO2 90% Patient is endorsing that today he is feeling slightly better however his oxygen requirement has worsened, requested ABG and chest x-ray updated, he is reluctant aggressive intervention at this point, I did disc uss reduction in CRP with Actemra that was given at 10:13 AM yesterday, second dose to be given today I also discussed the option of proning, intubation and transfer for ECMO of patient both would like to try second dose of Actemra for now and see the response Consulted Dr. Haque today as well Sputum and blood cultures sterile Vitals/I&O/Wt Last Vital Signs Temp 98.5 F 12/16/20 10:00 Pulse 96 12/16/20 14:16 Resp 24 H 12/16/20 14:16 BP 151/84 12/16/20 14:00 Pulse Ox 87 L 12/16/20 14:16 12/15/20 12/16/20 12/16/20 22:59 06:59 14:59 Intake Total 780 / 1880 480 / 480 Output Total 950 / 950 825 / 1775 Balance -170 / 930 -825 / 105 480 / 480 Physical Exam Narrative: EXAM NARRATIVE: Morbidly obese male sitting comfortably with BiPAP FiO2 90% S1, S2 no active signs of congestive heart failure no murmur appreciated Distended abdomen visceral obesity Nontender abdomen EOMI, PERRLA No neurological deficits Lower extremity no edema Bilateral diminished breath sounds with rhonchi no active crepitation or wheezing noted Awake alert oriented x3 GCS 15 Data : 12/16/20 04:33 12/16/20 04:33 Micro: Microbiology 12/14/20 15:10 Gram Stain - Final Sputum - Expectorated Sputum Sputum Culture - Final 12/14/20 14:44 Blood Culture - Preliminary Blood NEGATIVE TO DATE 12/14/20 14:45 Blood Culture - Preliminary Blood NEGATIVE TO DATE A&P Assessment and plan (1) Morbid obesity: Status: Acute (2) Hypoxia: Status: Acute (3) Pneumonia: Status: Acute Qualifiers: Pneumonia type: due to unspecified organism Laterality: bilateral Lung location: unspecified part of lung Qualified Code(s): J18.9 - Pneumonia, unspecified organism (4) COVID-19 determined by clinical diagnostic criteria: Status: Acute Additional A&P Information Hypoxia acute in nature is related to COVID-19 Severe ARDS First Actemra dose given 10:13 AM 12/15 Second dose 12/16 Continue remdesivir and Decadron regimen Empirical antibiotic regimen Lasix 20 mg IV push x1 today to keep him in negative balance Requested chest x-ray and ABG because of worsening of hypoxia today Previous CTA rule out PE, repeat inflammatory markers tomorrow COVID-19 PCR positive Abnormal transaminases related to COVID-19 and underlying hepatosplenomegaly We are transitioning patient between BiPAP and heated high flow he is requiring higher FiO2, at risk of deterioration, high risk of mortality morbidity, I did discuss my today's findings, second dose of Actemra, proning, intubation, transfer for ECMO, patient and his both reluctant at this point and would like to try second dose of Actemra for now with conservative measures Patient initially said no to intubation however [id number] conversation with him and his was successful to keep him full code Regular diet DVT prophylaxis Lovenox 30 mg every 12h secondary to BMI 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
[2020-12-16] MEDS: FUROsemide 10 mg/mL SDV 2mL 20 MG IVP (15:12)
[2020-12-16 15:16] LABS: ABG PCO2 38.6 mmHg (35-45); ABG PH Result 7.48 (7.35-7.45); Arterial Blood Gas Hematocrit 49.4 % (42-52); Base Excess ABG 4.5 mmol/L (-2.0-2.0); Blood Gas Allen Test Pos; Blood Gas Sample Type Arterial; HCO3 ABG 28.4 mmol/L (22-26); PO2 ABG 47.9 mmHg (80.0-100.0)
[2020-12-16 15:17] LABS: Blood Gas Operator Identificat MONRO; Blood Gas Sample Site Radial, left; Oxygen Device HAG
--- NOTE | 2020-12-16 17:06 | PM.CONSULT ---
Providers/Reason For Consult Consulting Physician/Specialty*: Silvino Haque MD/ Pulmonary Critical Care Reason for Consult*: Acute hypoxic respiratory failure secondary to ARDS due to COVID-19 pneumonia requiring high flow oxygen Requesting Physician: Flory Nick MD Attending Physician: Flory Nick MD History of Present Illness History of Present Illness Ricardo Don is a 35 year old male with no significant past medical history presented on 12/14/2020 to [facility] ER with one week of fever, chills, shortness of breath and anosmia over the past week. On presentation here he was noted to be hypoxic with an oxygen saturation at 72 on room air. Patient was initially requiring 6 L by nasal cannula with 02 saturation escalating quickly to heated hi flow 70% fi02 at 40 lpm. CTA chest negative for PE, however shows extensive diffuse B/L GGOs concerning COVID 19 pneumonia. Patient was admitted to ICU for close monitoring. rapid Covid Ag negative, PCR positive on 12/14/2020. Patient was started on five course of remdesivir and dexamethasone 6 mg daily, received one dose of prednisone after 12/15/2020. Currently in ICU is requiring 55 L 95% FiO2 and saturating 85-88%. As per the hospitalist, initially patient and are reluctant for intubation and aggressive care but later agreed for full code. Pulmonary critical care consult requested as patient is at risk for significant clinical deterioration. Patient seen at bedside today He is seen sitting in chair, in no acute respiratory distress Patient reportedly subjectively his breathing is good and has no discomfort Patient saturating 85 to 88% on 55 l and 95% high flow nasal cannula Reported since he started doing incentive spirometry today morning-he is able to cough up a lot of phlegm and feels like his breathing is getting better. When explained that he is at high risk for intubation with any indication of worsening respiratory distress and dropping saturations-he verbalized understanding and would want to decide about getting intubated at that point of time and states that he is breathing is currently good and he appears very comfortable as well. Labs and imaging reviewed Review of Systems General: Reports: 10 or more systems reviewed and unremarkable except in HPI and below Meds/Allergies Home Medications and Allergies Home Medications Medication Instructions Recorded Confirmed Last Taken Type acetaminophen [Tylenol Extra 1,000 mg PO Q8H PRN 12/14/20 12/14/20 12/14/20 09:00 History Strength] Allergies Allergy/AdvReac Type Severity Reaction Status Date / Time No Known Allergies Allergy Unverified 12/14/20 14:17 Current Medications Current Medications Generic Name Dose Route Start Last Admin Trade Name Freq PRN Reason Stop Dose Admin Albuterol/Ipratropium 3 ml 12/14/20 22:15 12/16/20 08:47 Ipratropium-Albuterol 3 Ml Neb INHALATION 3 ml Q6H.RESPIRATORY HORTENCIA Administration Ascorbic Acid 500 mg 12/15/20 18:00 12/16/20 08:31 Ascorbic Acid 500 Mg Tablet PO 500 mg BID HORTENCIA Administration Budesonide 0.5 mg 12/15/20 08:00 12/16/20 08:47 Budesonide 0.5 Mg/2 Ml Neb INHALATION 0.5 mg BID.RESPIRATORY HORTENCIA Administration Dexamethasone 6 mg 12/14/20 22:15 12/15/20 22:14 Dexamethasone 4 Mg/Ml Inj IVP 6 mg Q24H HORTENCIA Administration Enoxaparin Sodium 30 mg 12/15/20 15:30 12/16/20 15:12 Enoxaparin 30 Mg/0.3 Ml Syringe SUBCUT 30 mg Q12H HORTENCIA Administration Remdesivir 100 mg/ Sodium 100 mls @ 100 mls/hr 12/15/20 19:00 12/15/20 20:45 Chloride IV 12/18/20 18:59 Infused DAILY@1800 HORTENCIA Infusion Levofloxacin 750 mg 12/16/20 06:00 12/16/20 05:10 Levofloxacin 750 Mg Tablet PO 750 mg DAILY@0600 HORTENCIA Administration Protocol Lorazepam 0.5 mg 12/15/20 13:48 12/15/20 14:28 Lorazepam 2 Mg/Ml Inj 1 Ml IVP 0.5 mg Q12H PRN Administration ANXIETY Pantoprazole Sodium 40 mg 12/15/20 09:00 12/16/20 08:[address] 40 Mg Tablet PO 40 mg DAILY HORTENCIA Administration Vitamin D 1,000 unit 12/16/20 09:00 12/16/20 08:31 Cholecalciferol (Vitamin D3) 1,000 Unit Tablet PO 1,000 unit DAILY HORTENCIA Administration Zinc Gluconate 50 mg 12/16/20 09:00 12/16/20 08:31 Zinc Gluconate 50 Mg Tablet PO 50 mg DAILY HORTENCIA Administration PFSH Acute PFSH: Medical History No pertinent past medical history Surgical History No pertinent past surgical history Vitals/I&O/Wt Last Vital Signs Temp 98.5 F 12/16/20 10:00 Pulse 96 12/16/20 16:30 Resp 26 H 12/16/20 16:30 BP 138/106 12/16/20 16:30 Pulse Ox 86 L 12/16/20 16:30 12/16/20 12/16/20 12/16/20 06:59 14:59 22:59 Intake Total 480 / 480 Output Total 825 / 1775 Balance -825 / 105 480 / 480 Physical Exam Narrative: EXAM NARRATIVE: General: Morbidly obese young male, alert, not in acute respiratory distress HEENT: conj clear, EOMI, PERRL, mmm, Neck: supple, no meningismus Heme: no cervical LAP Pulmonary: Bilateral diffuse coarse crepitations Cardiovascular: rrr, nl s1s2, no mrg Abdomen: soft, nt, nd, no r/g, bs+ Extremities: pulses +, no edema, no c/c : no CVA tenderness Skin: intact, no rash MSK: no back or neck pain Neurologic: grossly intact Data Labs: Other Labs: Laboratory Results WBC 3.8 10^3/uL (4.0- 10.0) L 12/16/20 04:33 RBC 5.06 10^6/uL (4.1 -5.3) 12/16/20 04:33 Hgb 15.2 g/dL (11.7-1 6.6) 12/16/20 04:33 Hct 45.7 % (42.0-52.0 ) 12/16/20 04:33 MCV 90.3 fl (80-94) 12/16/20 04:33 MCH 30.0 pg (28.0-34. 0) 12/16/20 04:33 MCHC 33.3 g/dL (30.0-3 6.0) 12/16/20 04:33 RDW 13.0 % (12.1-15.1 ) 12/16/20 04:33 Plt Count 215 10^3/cmm (130 -400) 12/16/20 04:33 MPV 10.4 fL (7.4-10.4 ) 12/16/20 04:33 Neut % (Auto) 80.2 % 12/16/20 04:33 Lymph % (Auto) 10.8 % 12/16/20 04:33 [place] % (Auto) 8.7 % 12/16/20 04:33 Eos % (Auto) 0.0 % 12/16/20 04:33 Baso % (Auto) 0.0 % 12/16/20 04:33 Neut # (Auto) 3.04 10^3/uL (1.8 -7.7) 12/16/20 04:33 Lymph # (Auto) 0.4 10^3/uL (0.8- 4.8) L 12/16/20 04:33 [place]ell # (Auto) 0.3 10^3/uL (0.2- 0.9) 12/16/20 04:33 Eos # (Auto) 0.0 10^3/uL (0.0- 0.8) 12/16/20 04:33 Baso # (Auto) 0.0 10^3/uL (0.0- 0.1) 12/16/20 04:33 Nucleated RBC % (a uto) 0 % 12/16/20 04:33 Nucleated RBCs # 0.0 /100WBC 12/16/20 04:33 D-Dimer 1.05 ug/mIFEU (0- 0.59) H 12/15/20 04:55 Specimen Type Arterial 12/16/20 15:03 Sample Site Radial, left 12/16/20 15:03 ABG pH 7.48 (7.35-7.45) H 12/16/20 15:03 ABG pCO2 38.6 mmHg (35-45) 12/16/20 15:03 ABG pO2 47.9 mmHg (80.0-1 00.0) L 12/16/20 15:03 ABG HCO3 28.4 mmol/L (22-2 6) H 12/16/20 15:03 ABG Base Excess 4.5 mmol/L (-2.0- 2.0) H 12/16/20 15:03 Dewayne Test Pos 12/16/20 15:03 Hematocrit 49.4 % (42-52) 12/16/20 15:03 O2 Delivery Device Hag 12/16/20 15:03 O2 Liters/Min 55.0 % 12/16/20 15:03 FiO2 95.0 % 12/16/20 15:03 Immigration Case Worker ID Vinay 12/16/20 15:03 Sodium 134 mmol/L (136-1 45) L 12/16/20 04:33 Potassium 5.0 mmol/L (3.5-5 .1) 12/16/20 04:33 Chloride 95 mmol/L (98-107 ) L 12/16/20 04:33 Carbon Dioxide 27 mmol/L (22-29) 12/16/20 04:33 Anion Gap 17.0 (5-19) 12/16/20 04:33 BUN 8 mg/dL (6-20) 12/16/20 04:33 Creatinine 0.5 mg/dL (0.7-1. 2) L 12/16/20 04:33 GFR Calculation 191.5 mL/min (90- 130) H 12/16/20 04:33 Glucose 367 mg/dL (65-115 ) H 12/16/20 04:33 Calculated Osmolal ity 291 mOsm/kg (285- 295) 12/16/20 04:33 Lactic Acid 1.1 mmol/L (0.5-2 .2) 12/14/20 15:29 Calcium 8.3 mg/dL (8.5-10 .5) L 12/16/20 04:33 Total Bilirubin 0.4 mg/dL (0.15-1 .2) 12/15/20 04:55 AST 76 U/L (0-40) H 12/15/20 04:55 ALT 54 U/L (0-41) H 12/15/20 04:55 Alkaline Phosphata se 47 IU/L (40-130) 12/15/20 04:55 Lactate Dehydrogen ase 672 U/L (135-225) H 12/15/20 04:55 Troponin T Gen 5 n g/L 6 ng/L (0-15) 12/14/20 15:29 C-Reactive Protein 63.9 mg/L (0.0-4. 9) H 12/16/20 04:33 NT-Pro-B Natriuret Pep 11 pg/mL (0-125) 12/15/20 04:55 Total Protein 7.3 g/dL (6.6-8.7 ) 12/15/20 04:55 Albumin 3.1 g/dL (3.5-5.2 ) L 12/15/20 04:55 Globulin 4.2 g/dL (1.3-4.6 ) 12/15/20 04:55 Procalcitonin 0.25 ng/mL (0-0.5 ) 12/14/20 15:29 Nasal/Oral COVID-1 9 PCR Detected H 12/14/20 14:45 SARS-CoV-2 Ag (Rap id) Negative (Negati ve) 12/14/20 14:45 Impressions Chest CTA 12/14/20 15:57 IMPRESSION: 1. Multiple rounded geographic ground-glass opacities with some consolidation consistent with moderate to severe bilateral Covid-19 pneumonia versus other viral pneumonia. 2. Severe fatty infiltration of the liver. 3. No pulmonary embolus or aortic dissection. Radiation Dose CTDIVOL = (mGy): DLP = 1460.61 (mGy-cm) Chest X-Ray 12/16/20 14:39 Impression: No change in patchy bilateral pulmonary opacities most consistent with pneumonia. Micro: Micro: Microbiology 12/14/20 15:10 Gram Stain - Final Sputum - Expector ated Sputum Sputum Culture - F inal 12/14/20 14:44 Blood Culture - Pr eliminary Blood NEGATIVE TO JASVIR E 12/14/20 14:45 Blood Culture - Pr eliminary Blood NEGATIVE TO JASVIR E A&P Assessment and plan (1) Acute respiratory failure with hypoxia: Status: Acute (2) Acute respiratory distress syndrome (ARDS) due to 2019 novel coronavirus: Status: Acute (3) Morbid obesity: Status: Acute (4) Uncontrolled blood glucose: Status: Acute (5) Goals of care, counseling/discussion: Status: Acute #Acute hypoxic respiratory failure secondary to ARDS due to COVID-19 pneumonia #Morbid obesity with BMI 54 #Uncontrolled sugars - seen sitting in chair, in no acute respiratory distress - saturating 85 to 88% on 55 l and 95% high flow nasal cannula -ABG today morning 7.4 8/47/28 -Currently on 5-day remdesivir protocol and dexamethasone 6 mg daily for 10 days-started 12/14/2020 -S/p one dose Tocilizumab 12/15/2020; downtrending CRP 169> 63 -On scheduled Pulmicort and DuoNeb inhalers -On Levaquin 750 mg p.o. daily started 12/16/2020 -Blood cultures so far negative, procalcitonin negative, sputum Gram stain positive for gram-positive cocci in pairs and chains and gram-negative rods with heavy coccobacilli-final cultures pending - Continue incentive spirometry -D-dimer 1.[address] chest on 12/14/2020-negative for PE but changes consistent with moderate to severe bilateral COVID-19 pneumonia -Currently on Lovenox for DVT prophylaxis -Currently on regular diet -No history of diabetes-sugars on CMP > 250-possibly secondary to steroids; I will send for A1c and place patient on scale coverage -Full code -Continue close clinical monitoring for his respiratory status and is at high risk for intubation -Based on his morbid obesity-patient might have coexisting obstructive sleep apnea and obesity hypoventilation syndrome-we will benefit from BiPAP at nighttime and plan for sleep study as outpatient -At this point of time patient did not appear to be in any sort of respiratory distress and looked extremely comfortable, explained that he is at high risk for intubation and related complications with any indication of worsening respiratory distress and dropping saturations-he verbalized understanding and would want to decide about getting intubated at that point of time and states that he is breathing is currently good. -Hospitalist updated patient's about the medical condition and impending respiratory failure which might require emergency intubation Recommendations conveyed to hospitalist taking care of the patient, RN and RT taking care of the patient Consult Attestations Medical Necessity Statement: - Acute hypoxemic respiratory failure secondary to ARDS due to COVID-19 pneumonia on high flow nasal cannula 95% FiO2-at risk for intubation-needs close clinical monitoring and respiratory status in ICU Time Spent in Patient Care: Greater than 35 minutes (>than 50% of time spent in counselling and/or direct pt care on unit). Critical Care Time: The high probability of a clinically significant, sudden or life threatening deterioration of the patient's [pulmonary, endocrine] system(s) required my full and direct attention, intervention and personal management. The critical care time is as shown. This time is in addition to time spent performing any reported procedures but includes the following: [x] Data and vital sign review and interpretation [x] Patient assessment, examination and intervention [x] Documentation [x] Medication orders and management Critical Care Time (min): 45 Coding Level of Care Code Acute Supervisor Forming Department for [facility] Fwd Diagnoses Acute respiratory failure with hypoxia J96.01 Acute respiratory distress syndrome (ARDS) due to 2019 novel coronavirus U07.1; J80 Morbid obesity E66.01 Uncontrolled blood glucose R73.09 Goals of care, counseling/discussion Z71.89
[2020-12-16] MEDS: remdesivir 100 MG in sodium chloride 0.9% (100 ml) 100 ML IV (17:58)
[2020-12-16] MEDS: dexamethasone 4 mg/mL INJ 6 MG IVP (21:40)
[2020-12-16 21:54] LABS: Glucose Point of Care 373 mg/dL (70-110)
[2020-12-17] VITALS (44 sets, daily range): BP systolic 128–168; BP diastolic 75–102; PULSE 72–109; RESP 17–36; TEMP 37.4; O2SAT 80–98
[2020-12-17] MEDS: enoxaparin 30 mg/0.3 mL Syringe SUBCUT ×2 (02:35→16:31)
[2020-12-17] MEDS: ipratropium-albuterol 3 mL Neb INHALATION ×5 (02:43→20:08)
[2020-12-17 03:47] LABS: Hematocrit 45.4 % (42.0-52.0); Hemoglobin 15.1 g/dL (11.7-16.6); Lymphocytes # 0.5 10^3/uL (0.8-4.8); Lymphocytes % 8.1 %; Mean Corpuscular HGB Conc 33.3 g/dL (30.0-36.0); Mean Corpuscular Volume 90.1 fl (80-94); Mean Platelet Volume 10.4 fL (7.4-10.4); Monocytes # 0.4 10^3/uL (0.2-0.9); Monocytes % 6.1 %; Neutrophils # 5.44 10^3/uL (1.8-7.7); Neutrophils % 85.2 %; Nucleated Red Blood Cells % 0 %; Platelet Count 216 10^3/cmm (130-400); Red Blood Count 5.04 10^6/uL (4.1-5.3); Red Cell Distribution Width 12.9 % (12.1-15.1); White Blood Count 6.4 10^3/uL (4.0-10.0)
--- NOTE | 2020-12-17 04:00 | XR_ITS ---
WS: [id number] Portable AP upright chest, 12/17/2020 Clinical Data: hypoxia Comparison: Portable chest, 12/16/2020 Findings: Patchy bilateral pulmonary opacities have not changed. The heart is slightly enlarged. Beatris tor leads are on the chest wall. XR/XR chest 1V portable [id number] Impression: 1. No change in bilateral pulmonary opacities. 2. Cardiomegaly.
[2020-12-17 04:10] LABS: Alanine Aminotransferase 46 U/L (0-41); Albumin Level 3.4 g/dL (3.5-5.2); Alkaline Phosphatase 64 IU/L (40-130); Aspartate Amino Transferase 63 U/L (0-40); Blood Urea Nitrogen 12 mg/dL (6-20); C Reactive Protein 28.7 mg/L (0.0-4.9); Calcium 8.1 mg/dL (8.5-10.5); Carbon Dioxide 27 mmol/L (22-29); Chloride 93 mmol/L (98-107); Globulin 3.7 g/dL (1.3-4.6); Glomerular Filtration Rate 155.2 mL/min (90-130); Glucose 365 mg/dL (65-115); Osmolality Calculated 289 mOsm/kg (285-295); Sodium 132 mmol/L (136-145); Total Bilirubin 0.4 mg/dL (0.15-1.2); Total Protein 7.1 g/dL (6.6-8.7)
[2020-12-17 04:13] LABS: Procalcitonin 0.13 ng/mL (0-0.5)
[2020-12-17 04:16] LABS: Anion Gap 16.7 (5-19); Potassium 4.7 mmol/L (3.5-5.1)
[2020-12-17 04:42] LABS: Estmated Average Glucose 174; Hemoglobin A1C 7.7 % (4.0-6.0)
[2020-12-17 04:52] LABS: D Dimer 3.76 ug/mIFEU (0-0.59)
[2020-12-17 04:59] LABS: ABG PCO2 42.9 mmHg (35-45); ABG PH Result 7.44 (7.35-7.45); Arterial Blood Gas Hematocrit 49.4 % (42-52); Base Excess ABG 4.5 mmol/L (-2.0-2.0); Blood Gas Allen Test Pos; Blood Gas Sample Type Arterial; HCO3 ABG 29.3 mmol/L (22-26); PO2 ABG 61.3 mmHg (80.0-100.0)
[2020-12-17 05:00] LABS: Blood Gas Sample Site Radial, right; Oxygen Device BIPAP
[2020-12-17] MEDS: levoFLOXacin 750 mg Tablet PO (05:12)
[2020-12-17] MEDS: budesonide 0.5 mg/2 mL Neb INHALATION ×2 (08:31→20:08)
[2020-12-17 08:49] LABS: Glucose Point of Care 358 mg/dL (70-110)
[2020-12-17] MEDS: ascorbic acid 500 mg Tablet PO ×2 (09:46→17:47)
[2020-12-17] MEDS: pantoprazole DR 40 mg Tablet PO (09:46)
[2020-12-17] MEDS: cholecalciferol (vitamin D3) 1,000 unit Tablet 1000 UNIT PO (09:46)
[2020-12-17] MEDS: zinc gluconate 50 mg Tablet PO (09:46)
--- NOTE | 2020-12-17 11:37 | PM.PN ---
Subjective Subjective: Interval history: -Patient seen at bedside today morning -No overnight events-reported he slept well -On BiPAP is 95% he was saturating 95% -Changed to high flow nasal cannula 55 L 95% today morning-again saturating around 85 -Encouraged to use BiPAP even during daytime with regular breaks, sit out of bed to chair, continue incentive spirometry when off BiPAP -Labs and imaging reviewed Medications: Reviewed: Yes Vitals/I&O/Wt Last Vital Signs Temp 99.4 F 12/17/20 04:00 Pulse 81 12/17/20 10:25 Resp 25 H 12/17/20 08:31 BP 157/75 12/17/20 05:00 Pulse Ox 93 12/17/20 10:25 12/16/20 12/17/20 12/17/20 22:59 06:59 14:59 Intake Total 540 / 1020 100 / 1120 Output Total 1750 / 1750 1000 / 2750 Balance -1210 / -730 -900 / -1630 Physical Exam Narrative: EXAM NARRATIVE: General: Morbidly obese young male, alert, not in acute respiratory distress HEENT: conj clear, EOMI, PERRL, mmm, Neck: supple, no meningismus Heme: no cervical LAP Pulmonary: Improving coarse crepitations Cardiovascular: rrr, nl s1s2, no mrg Abdomen: soft, nt, nd, no r/g, bs+ Extremities: pulses +, no edema, no c/c : no CVA tenderness Skin: intact, no rash MSK: no back or neck pain Neurologic: grossly intact Data : 12/17/20 03:20 12/17/20 03:20 Other Labs: Laboratory Results WBC 6.4 10^3/uL (4.0-10.0) 12/17/20 03:20 RBC 5.04 10^6/uL (4.1-5.3) 12/17/20 03:20 Hgb 15.1 g/dL (11.7-16.6) 12/17/20 03:20 Hct 45.4 % (42.0-52.0) 12/17/20 03:20 MCV 90.1 fl (80-94) 12/17/20 03:20 MCH 30.0 pg (28.0-34.0) 12/17/20 03:20 MCHC 33.3 g/dL (30.0-36.0) 12/17/20 03:20 RDW 12.9 % (12.1-15.1) 12/17/20 03:20 Plt Count 216 10^3/cmm (130-400) 12/17/20 03:20 MPV 10.4 fL (7.4-10.4) 12/17/20 03:20 Neut % (Auto) 85.2 % 12/17/20 03:20 Lymph % (Auto) 8.1 % 12/17/20 03:20 Divide % (Auto) 6.1 % 12/17/20 03:20 Eos % (Auto) 0.0 % 12/17/20 03:20 Baso % (Auto) 0.0 % 12/17/20 03:20 Neut # (Auto) 5.44 10^3/uL (1.8-7.7) 12/17/20 03:20 Lymph # (Auto) 0.5 10^3/uL (0.8-4.8) L 12/17/20 03:20 Divide # (Auto) 0.4 10^3/uL (0.2-0.9) 12/17/20 03:20 Eos # (Auto) 0.0 10^3/uL (0.0-0.8) 12/17/20 03:20 Baso # (Auto) 0.0 10^3/uL (0.0-0.1) 12/17/20 03:20 Nucleated RBC % (auto) 0 % 12/17/20 03:20 Nucleated RBCs # 0.0 /100WBC 12/17/20 03:20 D-Dimer 3.76 ug/mIFEU (0-0.59) H 12/17/20 03:20 Specimen Type Arterial 12/17/20 04:51 Sample Site Radial, right 12/17/20 04:51 ABG pH 7.44 (7.35-7.45) 12/17/20 04:51 ABG pCO2 42.9 mmHg (35-45) 12/17/20 04:51 ABG pO2 61.3 mmHg (80.0-100.0) L 12/17/20 04:51 ABG HCO3 29.3 mmol/L (22-26) H 12/17/20 04:51 ABG Base Excess 4.5 mmol/L (-2.0-2.0) H 12/17/20 04:51 Dewayne Test Pos 12/17/20 04:51 Hematocrit 49.4 % (42-52) 12/17/20 04:51 O2 Delivery Device Bipap 12/17/20 04:51 O2 Liters/Min 55.0 % 12/16/20 15:03 FiO2 95.0 % 12/17/20 04:51 Director Of Graduate Admissions ID Hinja 12/17/20 04:51 Sodium 132 mmol/L (136-145) L 12/17/20 03:20 Potassium 4.7 mmol/L (3.5-5.1) 12/17/20 03:20 Chloride 93 mmol/L (98-107) L 12/17/20 03:20 Carbon Dioxide 27 mmol/L (22-29) 12/17/20 03:20 Anion Gap 16.7 (5-19) 12/17/20 03:20 BUN 12 mg/dL (6-20) 12/17/20 03:20 Creatinine 0.6 mg/dL (0.7-1.2) L 12/17/20 03:20 GFR Calculation 155.2 mL/min (90-130) H 12/17/20 03:20 Glucose 365 mg/dL (65-115) H 12/17/20 03:20 POC Glucose 358 mg/dL (70-110) H 12/17/20 08:42 Estimat Average Glucose 174 12/17/20 03:20 Hemoglobin A1c 7.7 % (4.0-6.0) H 12/17/20 03:20 Calculated Osmolality 289 mOsm/kg (285-295) 12/17/20 03:20 Lactic Acid 1.1 mmol/L (0.5-2.2) 12/14/20 15:29 Calcium 8.1 mg/dL (8.5-10.5) L 12/17/20 03:20 Total Bilirubin 0.4 mg/dL (0.15-1.2) 12/17/20 03:20 AST 63 U/L (0-40) H 12/17/20 03:20 ALT 46 U/L (0-41) H 12/17/20 03:20 Alkaline Phosphatase 64 IU/L (40-130) 12/17/20 03:20 Lactate Dehydrogenase 672 U/L (135-225) H 12/15/20 04:55 Troponin T Gen 5 ng/L 6 ng/L (0-15) 12/14/20 15:29 C-Reactive Protein 28.7 mg/L (0.0-4.9) H 12/17/20 03:20 NT-Pro-B Natriuret Pep 11 pg/mL (0-125) 12/15/20 04:55 Total Protein 7.1 g/dL (6.6-8.7) 12/17/20 03:20 Albumin 3.4 g/dL (3.5-5.2) L 12/17/20 03:20 Globulin 3.7 g/dL (1.3-4.6) 12/17/20 03:20 Procalcitonin 0.13 ng/mL (0-0.5) 12/17/20 03:20 Nasal/Oral COVID-19 PCR Detected H 12/14/20 14:45 SARS-CoV-2 Ag (Rapid) Negative (Negative) 12/14/20 14:45 Impressions Chest CTA 12/14/20 15:57 IMPRESSION: 1. Multiple rounded geographic ground-glass opacities with some consolidation consistent with moderate to severe bilateral Covid-19 pneumonia versus other viral pneumonia. 2. Severe fatty infiltration of the liver. 3. No pulmonary embolus or aortic dissection. Radiation Dose CTDIVOL = (mGy): DLP = 1460.61 (mGy-cm) Chest X-Ray 12/17/20 04:00 Impression: 1. No change in bilateral pulmonary opacities. 2. Cardiomegaly. Micro: Microbiology 12/14/20 15:10 Gram Stain - Final Sputum - Expectorated Sputum Sputum Culture - Final A&P Assessment and plan (1) Acute respiratory failure with hypoxia: Status: Acute (2) Acute respiratory distress syndrome (ARDS) due to 2019 novel coronavirus: Status: Acute (3) Morbid obesity: Status: Acute (4) Uncontrolled blood glucose: Status: Acute (5) Goals of care, counseling/discussion: Status: Acute (6) Diabetes: Status: Acute #Acute hypoxic respiratory failure secondary to ARDS due to COVID-19 pneumonia #Morbid obesity with BMI 54 #Uncontrolled sugars-A1c 7.7-newly diagnosed diabetes #Deranged LFTs-likely secondary to Covid - seen sitting in chair, in no acute respiratory distress - saturating 85 to 88% on 55 l and 95% high flow nasal cannula -ABG today morning 7.4 4/42/61/29/95%-on BiPAP 95% -Encouraged to use BiPAP in the morning as well with intermittent breaks, incentive spirometry and out of bed to chair -Currently on 5-day remdesivir protocol and dexamethasone 6 mg daily for 10 days-started 12/14/2020 -S/p one dose Tocilizumab 12/15/2020; downtrending CRP 169> 63 -On scheduled Pulmicort and DuoNeb inhalers -On Levaquin 750 mg p.o. daily started 12/16/2020 -Blood cultures so far negative, procalcitonin negative, sputum Gram stain positive for gram-positive cocci in pairs and chains and gram-negative rods with heavy coccobacilli-final cultures-normal jason - Continue incentive spirometry -D-dimer 1.[address] chest on 12/14/2020-negative for PE but changes consistent with moderate to severe bilateral COVID-19 pneumonia -Currently on Lovenox for DVT prophylaxis -Currently on regular diet -No history of diabetes-sugars on CMP > 250-possibly secondary to steroids; A1c 7.7 -Placed on scale coverage and monitor sugars -Improving LFTs -Full code -Continue close clinical monitoring for his respiratory status and is at high risk for intubation -Based on his morbid obesity-patient might have coexisting obstructive sleep apnea and obesity hypoventilation syndrome-we will benefit from BiPAP at nighttime and plan for sleep study as outpatient -At this point of time patient did not appear to be in any sort of respiratory distress and looked extremely comfortable, explained that he is at high risk for intubation and related complications with any indication of worsening respiratory distress and dropping saturations-he verbalized understanding and would want to decide about getting intubated at that point of time and states that he is breathing is currently good. -Hospitalist updated patient's about the medical condition and impending respiratory failure which might require emergency intubation Recommendations conveyed to hospitalist taking care of the patient, RN and RT taking care of the patient Attestations Medical Necessity Statement*: Acute hypoxic respiratory failure secondary to ARDS due to COVID-19 pneumonia requiring high flow oxygen 95%-impending respiratory failure-need close respiratory monitoring in ICU for possible intubation if patient deteriorates from here. Time Spent in Patient Care: Greater than 35 minutes (>than 50% of time spent in counselling and/or direct pt care on unit). Critical Care Time: Critical Care Time (min): 45 Coding Level of Care Code Established Pt Acute Commercial Lease Administrator for [facility] Patient Type Established History Comprehensive Exam Comprehensive Medical Decision Making High Complexity Diagnoses Acute respiratory failure with hypoxia J96.01 Acute respiratory distress syndrome (ARDS) due to 2019 novel coronavirus U07.1; J80 Morbid obesity E66.01 Uncontrolled blood glucose R73.09 Goals of care, counseling/discussion Z71.89 Diabetes E11.9 Time Spent (min) 45
[2020-12-17 11:54] LABS: Glucose Point of Care 354 mg/dL (70-110)
--- NOTE | 2020-12-17 14:16 | P.PN_ITS ---
Subjective Subjective: Interval history: Patient did require BiPAP overnight, a blood gas was requested by anthropological linguist overnight which was reported to him as well, PO2 did show improvement with BiPAP this morning he was on heated high flow 95% 55 L, on BiPAP he was also 95% saturating 95% Patient does not endorse any chest pain or shortness of breath he thinks he is doing fine on heated high flow however O2 saturations fluctuated between 84 to 87% updated she was told about the overnight BiPAP usage, reduction in CRP and no plans to repeat Actemra Patient was encouraged to use BiPAP more often, get out of bed to chair Vitals/I&O/Wt Last Vital Signs Temp 99.4 F 12/17/20 04:00 Pulse 81 12/17/20 14:00 Resp 21 H 12/17/20 14:00 BP 149/100 12/17/20 14:00 Pulse Ox 86 L 12/17/20 14:00 12/16/20 12/17/20 12/17/20 22:59 06:59 14:59 Intake Total 540 / 1020 100 / 1120 120 / 120 Output Total 1750 / 1750 1000 / 2750 Balance -1210 / -730 -900 / -1630 120 / 120 Physical Exam Narrative: EXAM NARRATIVE: Morbidly obese male currently on heated high flow S1, S2 sinus rhythm Abdomen distended no signs of peritonitis Bowel sounds present Lower extremity no edema Bilateral breath sounds with rhonchi at the bases EOMI, PERRLA no neurological deficit Awake alert Patient did ask appropriate questions Data : 12/17/20 03:20 12/17/20 03:20 Micro: Microbiology 12/14/20 15:10 Gram Stain - Final Sputum - Expectorated Sputum Sputum Culture - Final A&P Assessment and plan (1) Acute respiratory distress syndrome (ARDS) due to 2019 novel coronavirus: Status: Acute (2) Acute respiratory failure with hypoxia: Status: Acute (3) Pneumonia due to 2019-nCoV: Status: Acute (4) Respiratory failure: Status: Acute (5) Hypoxia: Status: Acute (6) Pneumonia: Status: Acute Qualifiers: Pneumonia type: due to unspecified organism Laterality: bilateral Lung location: unspecified part of lung Qualified Code(s): J18.9 - Pneumonia, unspecified organism (7) Uncontrolled blood glucose: Status: Acute (8) Goals of care, counseling/discussion: Status: Acute (9) Diabetes: Status: Acute Additional A&P Information Hypoxia related to COVID-19 ARDS Currently on heated high flow 95% 55 L We will finish 5 days of remdesivir and 10 days on Decadron He only received 1 dose of Tocilizumab 12/15 CRP is trending down I would continue his DuoNeb along with Levaquin Cultures negative to date, sputum culture gram-negative rods with heavy coccobacilli: Normal jason Patient is afebrile In case of worsening of hypoxia I might repeat CTA chest if needed previous CTA chest unremarkable Currently on Lovenox twice a day regimen for DVT prophylaxis Consistent carb diet For hyperglycemia started on insulin regimen LFTs improving which most likely secondary to COVID-19 with underlying possible Gaviria, he does have hepatosplenomegaly Full code Encouraged use of BiPAP and take 2-hour break to be on heated high flow, updated, did discuss that next step will be intubation if he fails on BiPAP and proning will be a challenge considering his BMI for now we will continue above- mentioned regimen Attestations Medical Necessity Statement*: Continue ICU management for hypoxia related to COVID-19 Time Spent in Patient Care: 16 - 35 minutes Coding Level of Care Code Acute Fish Technologist for [facility] Fwd Diagnoses Acute respiratory distress syndrome (ARDS) due to 2019 novel coronavirus U07.1; J80 Acute respiratory failure with hypoxia J96.01 Pneumonia due to 2019-nCoV U07.1; J12.82 Respiratory failure J96.90 Hypoxia R09.02 Pneumonia J18.9 Pneumonia type: due to unspecified organism Laterality: bilateral Lung location: unspecified part of lung Uncontrolled blood glucose R73.09 Goals of care, counseling/discussion Z71.89 Diabetes E11.9
[2020-12-17] MEDS: lanolin oint 7 gm 1 APPLIC TOPICAL (14:58)
[2020-12-17 16:50] LABS: Glucose Point of Care 298 mg/dL (70-110)
[2020-12-17] MEDS: remdesivir 100 MG in sodium chloride 0.9% (100 ml) 100 ML IV (17:47)
[2020-12-17 21:49] LABS: Glucose Point of Care 345 mg/dL (70-110)
[2020-12-17] MEDS: insulin glargine 100 units/1 mL 20 UNIT SUBCUT (22:29)
[2020-12-17] MEDS: dexamethasone 4 mg/mL INJ 6 MG IVP (22:30)
[2020-12-18] VITALS (44 sets, daily range): BP systolic 116–170; BP diastolic 71–136; PULSE 0–110; RESP 17–36; TEMP 36.9–37.3; O2SAT 67–97
[2020-12-18] MEDS: ipratropium-albuterol 3 mL Neb INHALATION ×4 (03:41→22:23)
[2020-12-18 04:45] LABS: ABG PCO2 43.1 mmHg (35-45); ABG PH Result 7.43 (7.35-7.45); Arterial Blood Gas Hematocrit 49.7 % (42-52); Base Excess ABG 3.4 mmol/L (-2.0-2.0); Blood Gas Allen Test Pos; Blood Gas Sample Site Radial, left; Blood Gas Sample Type Arterial; HCO3 ABG 28.4 mmol/L (22-26); Oxygen Device BIPAP; PO2 ABG 53.6 mmHg (80.0-100.0)
[2020-12-18 05:00] LABS: Hematocrit 47.1 % (42.0-52.0); Hemoglobin 15.4 g/dL (11.7-16.6); Lymphocytes # 0.6 10^3/uL (0.8-4.8); Lymphocytes % 9.9 %; Mean Corpuscular HGB Conc 32.7 g/dL (30.0-36.0); Mean Corpuscular Hemoglobin 29.6 pg (28.0-34.0); Mean Corpuscular Volume 90.6 fl (80-94); Mean Platelet Volume 10.5 fL (7.4-10.4); Monocytes # 0.5 10^3/uL (0.2-0.9); Neutrophils # 5.19 10^3/uL (1.8-7.7); Neutrophils % 81.2 %; Nucleated Red Blood Cells % 0 %; Platelet Count 184 10^3/cmm (130-400); Red Cell Distribution Width 13.1 % (12.1-15.1); White Blood Count 6.4 10^3/uL (4.0-10.0)
[2020-12-18] MEDS: enoxaparin 30 mg/0.3 mL Syringe SUBCUT (05:13)
[2020-12-18] MEDS: levoFLOXacin 750 mg Tablet PO (05:14)
[2020-12-18 05:26] LABS: Blood Urea Nitrogen 13 mg/dL (6-20); Calcium 8.1 mg/dL (8.5-10.5); Carbon Dioxide 27 mmol/L (22-29); Chloride 94 mmol/L (98-107); Glomerular Filtration Rate 155.2 mL/min (90-130); Glucose 335 mg/dL (65-115); Osmolality Calculated 287 mOsm/kg (285-295); Sodium 132 mmol/L (136-145)
[2020-12-18 05:29] LABS: D Dimer >= 20.00 ug/mIFEU (0-0.59)
[2020-12-18 05:37] LABS: Anion Gap 16.1 (5-19); Potassium 5.1 mmol/L (3.5-5.1)
--- NOTE | 2020-12-18 07:00 | PC.NURSE ---
Shift Note Frequent safety and comfort rounds continue. Orders and/or nursing care completed as indicated. Patient monitored for response to intervention and treatment(s). Education provided includes[]. Patient and/or national sales representative [[email or web address]]. Will continue to monitor. The patient experienced a very uneventful night and was on the BiPAP most of the shift. He had one coughing episode early in the morning when the respiratory therapist was putting him on heated HiFLO, and so he was put back on the BiPAP. He blood sugar was in the 300 at the beginning of the shift. He remained alert and oriented X4 and was able to sleep for a couple of hours.
[2020-12-18 07:41] LABS: Slide Review Slide Review Perform
[2020-12-18 07:55] LABS: Glucose Point of Care 300 mg/dL (70-110)
[2020-12-18] MEDS: cholecalciferol (vitamin D3) 1,000 unit Tablet 1000 UNIT PO (08:11)
[2020-12-18] MEDS: pantoprazole DR 40 mg Tablet PO (08:11)
[2020-12-18] MEDS: zinc gluconate 50 mg Tablet PO (08:11)
[2020-12-18] MEDS: ascorbic acid 500 mg Tablet PO ×2 (08:11→16:59)
[2020-12-18] MEDS: budesonide 0.5 mg/2 mL Neb INHALATION ×2 (08:18→22:23)
--- NOTE | 2020-12-18 08:23 | CT_ITS ---
WS: [id number] CTA OF THE CHEST WITH PULMONARY EMBOLISM PROTOCOL TECHNIQUE: High-resolution contrast enhanced CTA of the chest with coronal and sagittal reformatted i vikis with pulmonary embolism protocol. MIP images are also reviewed. CLINICAL INFORMATION: hypoxia COMPARISON: December 14, 2020 DLP: 1000.[address] scans at [facility] use at least one of these dose optimization techniques: automated e xposure control; mA and/or kV adjustment per patient size (includes targeted exams where dose is matc hed to clinical indication); or iterative reconstruction. FINDINGS: Proximal main pulmonary arteries are normal. Segmental pulmonary arteries appear patent. Subsegmental pulmonary arteries not well visualized due to body habitus and breathing artifact. Normal caliber thoracic aorta. Enlarged AP window, right hilar and subcarinal lymph nodes likely reac tive. Diffuse bilateral hazy groundglass infiltrates have progressed compared to the prior examination with more confluence throughout both lungs today. Findings suspicious COVID 19 pneumonia. No significant pleural fluid. Diffuse fatty infiltration of the liver. Hepatomegaly. Mild splenomegaly. Hypertrophic changes thoracic spine. CT/CT angio chest PE protcl [id number] IMPRESSION: 1. Proximal main pulmonary arteries are normal. No evidence of proximal pulmon pierre embolus. Distal vessels not well evaluated due to body habitus and breathin g artifact. 2. Progressed diffuse bilateral hazy groundglass infiltrates with more conflue nce today. Findings suspicious for COVID 19 pneumonia. 3. Prominent AP window, hilar and subcarinal lymph nodes likely reactive. 4. Hepatomegaly and mild splenomegaly.
--- NOTE | 2020-12-18 08:23 | USCV_ITS ---
Ricardo Don Age: 35 Gender: M : 1985 Exam Date: 12/18/2020 15:47 Ordering Phys: Flory Nick MD Technologist: [place] [facility] [place]: BILAT EDEMA HISTORY: Lower extremity swelling. PROCEDURES: The venous duplex Doppler examination of both lower extremities was performed in the standard fashion. The following venous structures were evaluated: common femoral vein, profunda vein, proximal portion of the greater saphenous vein, superficial femoral vein, and the popliteal vein. FINDINGS: Normal 2-D Doppler and augmentation and compressibility throughout the lower extremity venous structures. Additional imaging through the proximal calf veins also reveals no thrombus. Limited evaluation of the greater saphenous vein is patent with no thrombus.. CONCLUSIONS No evidence of right lower extremity DVT. No evidence of left lower extremity DVT. Gerber Fritz MD (Electronically Signed) Final Date: 18 December 2020 17:11 S
[2020-12-18 12:02] LABS: Glucose Point of Care 290 mg/dL (70-110)
[2020-12-18] MEDS: insulin glargine 100 units/1 mL 20 UNIT SUBCUT (12:28)
--- NOTE | 2020-12-18 12:48 | PM.PN ---
Subjective Subjective: Interval history: -Patient seen sitting out of bed to chair -No change in mental status -Still requiring 60 L 94% and saturating 88% -Labs and imaging [id number] significantly elevated-increase full dose anticoagulation and send for CT angiogram and bilateral lower extremity venous Doppler Medications: Reviewed: Yes Vitals/I&O/Wt Last Vital Signs Temp 98.5 F 12/18/20 04:00 Pulse 98 12/18/20 08:30 Resp 25 H 12/18/20 08:30 BP 129/71 12/18/20 02:00 Pulse Ox 88 L 12/18/20 08:30 12/17/20 12/18/20 12/18/20 22:59 06:59 14:59 Intake Total 220 / 460 200 / 660 Balance 220 / 460 200 / 660 Physical Exam Narrative: EXAM NARRATIVE: General: Morbidly obese young male, alert, not in acute respiratory distress HEENT: conj clear, EOMI, PERRL, mmm, Neck: supple, no meningismus Heme: no cervical LAP Pulmonary: Improving coarse crepitations Cardiovascular: rrr, nl s1s2, no mrg Abdomen: soft, nt, nd, no r/g, bs+ Extremities: pulses +, no edema, no c/c : no CVA tenderness Skin: intact, no rash MSK: no back or neck pain Neurologic: grossly intact Data : 12/18/20 03:51 12/18/20 03:51 Other Labs: Laboratory Results WBC 6.4 10^3/uL (4.0-10.0) 12/18/20 03:51 RBC 5.20 10^6/uL (4.1-5.3) 12/18/20 03:51 Hgb 15.4 g/dL (11.7-16.6) 12/18/20 03:51 Hct 47.1 % (42.0-52.0) 12/18/20 03:51 MCV 90.6 fl (80-94) 12/18/20 03:51 MCH 29.6 pg (28.0-34.0) 12/18/20 03:51 MCHC 32.7 g/dL (30.0-36.0) 12/18/20 03:51 RDW 13.1 % (12.1-15.1) 12/18/20 03:51 Plt Count 184 10^3/cmm (130-400) 12/18/20 03:51 MPV 10.5 fL (7.4-10.4) H 12/18/20 03:51 Neut % (Auto) 81.2 % 12/18/20 03:51 Lymph % (Auto) 9.9 % 12/18/20 03:51 [place] % (Auto) 8.0 % 12/18/20 03:51 Eos % (Auto) 0.0 % 12/18/20 03:51 Baso % (Auto) 0.0 % 12/18/20 03:51 Neut # (Auto) 5.19 10^3/uL (1.8-7.7) 12/18/20 03:51 Lymph # (Auto) 0.6 10^3/uL (0.8-4.8) L 12/18/20 03:51 [place] # (Auto) 0.5 10^3/uL (0.2-0.9) 12/18/20 03:51 Eos # (Auto) 0.0 10^3/uL (0.0-0.8) 12/18/20 03:51 Baso # (Auto) 0.0 10^3/uL (0.0-0.1) 12/18/20 03:51 Nucleated RBC % (auto) 0 % 12/18/20 03:51 Nucleated RBCs # 0.0 /100WBC 12/18/20 03:51 D-Dimer >= 20.00 ug/mIFEU (0-0.59) H 12/18/20 03:51 Specimen Type Arterial 12/18/20 04:33 Sample Site Radial, left 12/18/20 04:33 ABG pH 7.43 (7.35-7.45) 12/18/20 04:33 ABG pCO2 43.1 mmHg (35-45) 12/18/20 04:33 ABG pO2 53.6 mmHg (80.0-100.0) L 12/18/20 04:33 ABG HCO3 28.4 mmol/L (22-26) H 12/18/20 04:33 ABG Base Excess 3.4 mmol/L (-2.0-2.0) H 12/18/20 04:33 Dewayne Test Pos 12/18/20 04:33 Hematocrit 49.7 % (42-52) 12/18/20 04:33 O2 Delivery Device Bipap 12/18/20 04:33 O2 Liters/Min 55.0 % 12/16/20 15:03 FiO2 90.0 % 12/18/20 04:33 Milliner Helper ID Butt 12/18/20 04:33 Sodium 132 mmol/L (136-145) L 12/18/20 03:51 Potassium 5.1 mmol/L (3.5-5.1) 12/18/20 03:51 Chloride 94 mmol/L (98-107) L 12/18/20 03:51 Carbon Dioxide 27 mmol/L (22-29) 12/18/20 03:51 Anion Gap 16.1 (5-19) 12/18/20 03:51 BUN 13 mg/dL (6-20) 12/18/20 03:51 Creatinine 0.6 mg/dL (0.7-1.2) L 12/18/20 03:51 GFR Calculation 155.2 mL/min (90-130) H 12/18/20 03:51 Glucose 335 mg/dL (65-115) H 12/18/20 03:51 POC Glucose 290 mg/dL (70-110) H 12/18/20 11:58 Estimat Average Glucose 174 12/17/20 03:20 Hemoglobin A1c 7.7 % (4.0-6.0) H 12/17/20 03:20 Calculated Osmolality 287 mOsm/kg (285-295) 12/18/20 03:51 Lactic Acid 1.1 mmol/L (0.5-2.2) 12/14/20 15:29 Calcium 8.1 mg/dL (8.5-10.5) L 12/18/20 03:51 Total Bilirubin 0.4 mg/dL (0.15-1.2) 12/17/20 03:20 AST 63 U/L (0-40) H 12/17/20 03:20 ALT 46 U/L (0-41) H 12/17/20 03:20 Alkaline Phosphatase 64 IU/L (40-130) 12/17/20 03:20 Lactate Dehydrogenase 672 U/L (135-225) H 12/15/20 04:55 Troponin T Gen 5 ng/L 6 ng/L (0-15) 12/14/20 15:29 C-Reactive Protein 14.0 mg/L (0.0-4.9) H 12/18/20 03:51 NT-Pro-B Natriuret Pep 11 pg/mL (0-125) 12/15/20 04:55 Total Protein 7.1 g/dL (6.6-8.7) 12/17/20 03:20 Albumin 3.4 g/dL (3.5-5.2) L 12/17/20 03:20 Globulin 3.7 g/dL (1.3-4.6) 12/17/20 03:20 Procalcitonin 0.13 ng/mL (0-0.5) 12/17/20 03:20 Nasal/Oral COVID-19 PCR Detected H 12/14/20 14:45 SARS-CoV-2 Ag (Rapid) Negative (Negative) 12/14/20 14:45 Impressions Chest CTA 12/14/20 15:57 IMPRESSION: 1. Multiple rounded geographic ground-glass opacities with some consolidation consistent with moderate to severe bilateral Covid-19 pneumonia versus other viral pneumonia. 2. Severe fatty infiltration of the liver. 3. No pulmonary embolus or aortic dissection. Radiation Dose CTDIVOL = (mGy): DLP = 1460.61 (mGy-cm) Chest X-Ray 12/17/20 04:00 Impression: 1. No change in bilateral pulmonary opacities. 2. Cardiomegaly. A&P Assessment and plan (1) Acute respiratory failure with hypoxia: Status: Acute (2) Acute respiratory distress syndrome (ARDS) due to 2019 novel coronavirus: Status: Acute (3) Morbid obesity: Status: Acute (4) Uncontrolled blood glucose: Status: Acute (5) Goals of care, counseling/discussion: Status: Acute (6) Diabetes: Status: Acute Qualifiers: Diabetes mellitus type: type 2 Diabetes mellitus superintendent terminal insulin use: without superintendent terminal use Diabetes mellitus complication status: without complication Qualified Code(s): E11.9 - Type 2 diabetes mellitus without complications #Acute hypoxic respiratory failure secondary to ARDS due to COVID-19 pneumonia #Morbid obesity with BMI 54 #Uncontrolled sugars-A1c 7.7-newly diagnosed diabetes #Deranged LFTs-likely secondary to Covid - seen sitting in chair, in no acute respiratory distress - saturating 85 to 88% on 60 l and 95% high flow nasal cannula -ABG today morning 7.4 3/43/53/28/on BiPAP 90% -Encouraged to use BiPAP in the morning as well with intermittent breaks, incentive spirometry and out of bed to chair -Currently on 5-day remdesivir protocol and dexamethasone 6 mg daily for 10 days-started 12/14/2020 -S/p one dose Tocilizumab 12/15/2020; downtrending CRP 169> 63 > 28 > 14 -On scheduled Pulmicort and DuoNeb inhalers -On Levaquin 750 mg p.o. daily started 12/16/2020 -Blood cultures so far negative, procalcitonin negative, sputum Gram stain -normal jason - Continue incentive spirometry - CT chest on 12/14/2020-negative for PE but changes consistent with moderate to severe bilateral COVID-19 pneumonia-today D-dimer increased significantly compared admission-recommended to repeat CTA/bilateral lower extremity venous Doppler/full dose anticoagulation -Currently on Lovenox for DVT prophylaxis-cleared for full dose anticoagulation for suspected PE/DVT -Currently on regular diet -No history of diabetes-sugars on CMP > 250-possibly secondary to steroids; A1c 7.7 -Placed on scale coverage and sugars still uncontrolled-on Lantus 20 twice daily continue scale coverage -Improving LFTs -Full code -Continue close clinical monitoring for his respiratory status and is at high risk for intubation -Based on his morbid obesity-patient might have coexisting obstructive sleep apnea and obesity hypoventilation syndrome-recommended BiPAP at nighttime and plan for sleep study as outpatient -At this point of time patient did not appear to be in any sort of respiratory distress and looked extremely comfortable, explained that he is at high risk for intubation and related complications with any indication of worsening respiratory distress and dropping saturations-he verbalized understanding and would want to decide about getting intubated at that point of time and states that he is breathing is currently good. -Hospitalist updated patient's about the medical condition and impending respiratory failure which might require emergency intubation Recommendations conveyed to hospitalist taking care of the patient, RN and RT taking care of the patient Attestations Medical Necessity Statement*: Acute hypoxic respiratory failure secondary to ARDS due to COVID-19 pneumonia requiring high flow oxygen 95%-impending respiratory failure-need close respiratory monitoring in ICU for possible intubation if patient deteriorates from here. Time Spent in Patient Care: Greater than 35 minutes (>than 50% of time spent in counselling and/or direct pt care on unit). Critical Care Time: Critical Care Time (min): 45 Coding Level of Care Code Established Pt Acute Colon Therapist for Chg Fwd Patient Type Established History Comprehensive Exam Comprehensive Medical Decision Making High Complexity Diagnoses Acute respiratory failure with hypoxia J96.01 Acute respiratory distress syndrome (ARDS) due to 2019 novel coronavirus U07.1; J80 Morbid obesity E66.01 Uncontrolled blood glucose R73.09 Goals of care, counseling/discussion Z71.89 Diabetes E11.9 Diabetes mellitus type: type 2 Diabetes mellitus superintendent terminal insulin use: without alf use Diabetes mellitus complication status: without complication Time Spent (min) 45
[2020-12-18] MEDS: iohexol 350 mg/mL 100 mL Btl IV (14:30)
--- NOTE | 2020-12-18 16:01 | PM.PN ---
Subjective Subjective: Interval history: Worsening hypoxia noted on optimized BiPAP settings 95% at the time of my evaluation he was on 55 L 95% heated high flow Patient was telling me that his breathing is fine he is not experiencing any shortness of breath or chest pain, he thinks he is getting better, had 1 bowel movement yesterday This morning requested CTA because of worsening D-dimer and venous Dopplers Started him on therapeutic dose of Lovenox I have increased the dose of Lantus to twice a day CRP 14 Vitals/I&O/Wt Last Vital Signs Temp 98.5 F 12/18/20 04:00 Pulse 98 12/18/20 08:30 Resp 25 H 12/18/20 08:30 BP 129/71 12/18/20 02:00 Pulse Ox 88 L 12/18/20 08:30 12/18/20 12/18/20 12/18/20 06:59 14:59 22:59 Intake Total 200 / 660 Balance 200 / 660 Physical Exam Narrative: EXAM NARRATIVE: Morbid obese male was on heated high flow 95% Able to communicate no conversational dyspnea Endorsing feeling better S1, S2 Abdomen soft bowel sound present Lower extremity no edema EOMI, PERRLA Bilateral breath sounds without crepitations Data : 12/18/20 03:51 12/18/20 03:51 A&P Assessment and plan (1) Diabetes: Status: Acute Qualifiers: Diabetes mellitus type: type 2 Diabetes mellitus superintendent marine oil terminal insulin use: without correction use Diabetes mellitus complication status: without complication Qualified Code(s): E11.9 - Type 2 diabetes mellitus without complications (2) Goals of care, counseling/discussion: Status: Acute (3) Uncontrolled blood glucose: Status: Acute (4) Acute respiratory distress syndrome (ARDS) due to 2019 novel coronavirus: Status: Acute (5) Acute respiratory failure with hypoxia: Status: Acute (6) Pneumonia due to 2019-nCoV: Status: Acute (7) Respiratory failure: Status: Acute (8) Hypoxia: Status: Acute (9) Pneumonia: Status: Acute Qualifiers: Pneumonia type: due to unspecified organism Laterality: bilateral Lung location: unspecified part of lung Qualified Code(s): J18.9 - Pneumonia, unspecified organism (10) COVID-19 determined by clinical diagnostic criteria: Status: Acute (11) Hepatosplenomegaly: Status: Acute Additional A&P Information Persistent hypoxia ARDS COVID-19 High risk for intubation currently on heated high flow 95% 60 L Patient is endorsing feeling better CRP is trending down after Actemra however oxygen requirement has not improved Continue Decadron, remdesivir regimen We will add Lasix to keep him in negative balance we will give him 1 dose of 20 mg CTA rule out PE venous Doppler is pending Continue Levaquin empirical treatment Multivitamins and zinc Started on therapeutic dose of Lovenox for now until we get the final results of venous Dopplers Patient is high risk for deterioration and might require intubation over the weekend, Dr. Haque is not available for next 3 days, Dr. Lane however is available in case of emergencies, for now encourage use of BiPAP and for air hunger can add Precedex Hyperglycemia secondary to diabetes: Started on Lantus twice a day with sliding scale Lantus dose increased to 30 units twice daily Hepatosplenomegaly with abnormal LFTs Patient does not have icteric sclera, hepatitis LFTs would be above 100 this most likely is related to COVID-19 VERA has not been ruled out DVT currently on therapeutic Lovenox Consistent carb diet Full code Attestations Medical Necessity Statement*: High risk for intubation continue ICU management Time Spent in Patient Care: Greater than 35 minutes Coding Level of Care Code Acute Community Outreach Director for Chg Fwd Diagnoses Diabetes E11.9 Diabetes mellitus type: type 2 Diabetes mellitus correction insulin use: without correction use Diabetes mellitus complication status: without complication Goals of care, counseling/discussion Z71.89 Uncontrolled blood glucose R73.09 Acute respiratory distress syndrome (ARDS) due to 2019 novel coronavirus U07.1; J80 Acute respiratory failure with hypoxia J96.01 Pneumonia due to 2019-nCoV U07.1; J12.82 Respiratory failure J96.90 Hypoxia R09.02 Pneumonia J18.9 Pneumonia type: due to unspecified organism Laterality: bilateral Lung location: unspecified part of lung COVID-19 determined by clinical diagnostic criteria U07.1 Hepatosplenomegaly R16.2
[2020-12-18] MEDS: enoxaparin 100 mg/mL Syringe 180 MG SUBCUT (16:54)
[2020-12-18] MEDS: FUROsemide 10 mg/mL SDV 2mL 20 MG IVP (16:55)
[2020-12-18] MEDS: remdesivir 100 MG in sodium chloride 0.9% (100 ml) 100 ML IV (17:00)
[2020-12-18 18:36] LABS: Glucose Point of Care 243 mg/dL (70-110)
[2020-12-18] MEDS: insulin glargine 100 units/1 mL 30 UNIT SUBCUT (18:49)
[2020-12-18 21:45] LABS: Glucose Point of Care 211 mg/dL (70-110)
[2020-12-18] MEDS: dexamethasone 4 mg/mL INJ 6 MG IVP (22:30)
[2020-12-19] VITALS (50 sets, daily range): BP systolic 105–157; BP diastolic 66–101; PULSE 75–143; RESP 12–35; TEMP 36.8–37.7; O2SAT 75–94
[2020-12-19] MEDS: ipratropium-albuterol 3 mL Neb INHALATION ×4 (03:12→19:59)
[2020-12-19] MEDS: enoxaparin 100 mg/mL Syringe 180 MG SUBCUT ×2 (04:37→17:46)
[2020-12-19] MEDS: levoFLOXacin 750 mg Tablet PO (05:13)
[2020-12-19 05:25] LABS: Basophils % 0.1 %; Eosinophils % 0.1 %; Hematocrit 46.5 % (42.0-52.0); Hemoglobin 15.5 g/dL (11.7-16.6); Lymphocytes # 0.7 10^3/uL (0.8-4.8); Lymphocytes % 7.1 %; Mean Corpuscular HGB Conc 33.3 g/dL (30.0-36.0); Mean Corpuscular Hemoglobin 29.8 pg (28.0-34.0); Mean Corpuscular Volume 89.4 fl (80-94); Mean Platelet Volume 10.5 fL (7.4-10.4); Monocytes # 0.5 10^3/uL (0.2-0.9); Monocytes % 5.5 %; Neutrophils # 8.23 10^3/uL (1.8-7.7); Neutrophils % 86.1 %; Nucleated Red Blood Cells % 0 %; Platelet Count 172 10^3/cmm (130-400); White Blood Count 9.6 10^3/uL (4.0-10.0)
[2020-12-19 05:25] LABS: ABG PCO2 42.7 mmHg (35-45); ABG PH Result 7.42 (7.35-7.45)
[2020-12-19 05:26] LABS: Arterial Blood Gas Hematocrit 49.6 % (42-52); BIPAP 16/12; Base Excess ABG 2.4 mmol/L (-2.0-2.0); HCO3 ABG 27.4 mmol/L (22-26)
[2020-12-19 05:53] LABS: Anion Gap 16.7 (5-19); Blood Urea Nitrogen 11 mg/dL (6-20); C Reactive Protein 7.5 mg/L (0.0-4.9); Carbon Dioxide 25 mmol/L (22-29); Chloride 96 mmol/L (98-107); Glomerular Filtration Rate 155.2 mL/min (90-130); Glucose 285 mg/dL (65-115); Osmolality Calculated 286 mOsm/kg (285-295); Potassium 4.7 mmol/L (3.5-5.1); Sodium 133 mmol/L (136-145)
[2020-12-19 07:44] LABS: Blood Gas Allen Test Pos; Blood Gas Sample Site Radial, right; Blood Gas Sample Type Arterial; Oxygen Device BIPAP
[2020-12-19] MEDS: cholecalciferol (vitamin D3) 1,000 unit Tablet 1000 UNIT PO (08:05)
[2020-12-19] MEDS: zinc gluconate 50 mg Tablet PO (08:05)
[2020-12-19] MEDS: ascorbic acid 500 mg Tablet PO ×2 (08:05→17:47)
[2020-12-19] MEDS: pantoprazole DR 40 mg Tablet PO (08:05)
[2020-12-19] MEDS: insulin glargine 100 units/1 mL 30 UNIT SUBCUT (08:05)
[2020-12-19] MEDS: budesonide 0.5 mg/2 mL Neb INHALATION ×2 (08:10→19:59)
[2020-12-19 08:28] LABS: Glucose Point of Care 223 mg/dL (70-110)
[2020-12-19 11:04] LABS: Lactate Dehydrogenase 924 U/L (135-225)
--- NOTE | 2020-12-19 11:56 | PC.NUTR ---
Nutrition assessment completed for LOS. Recommend to encourage po intakes of meals/fluids and low-calorie snacks. Pt would benefit from nutrition education if interested when overall medical status improves. Recommend to consider modifying kcal restriction to 1800, as 1600 may be overly restrictive in this pt. See full RD assessment for further details.
[2020-12-19 12:23] LABS: Glucose Point of Care 172 mg/dL (70-110)
--- NOTE | 2020-12-19 17:40 | PM.PN ---
Subjective Subjective: Interval history: -690 mL Afebrile No leukocytosis Patient has been alternating BiPAP and heated high flow however oxygen requirement has not improved he still on 90 to 95% FiO2 He has been having bowel movement, eating adequately, patient is stating that his appetite is back and his sense of taste is also recuperating updated this morning Vitals/I&O/Wt Last Vital Signs Temp 98.7 F 12/19/20 14:00 Pulse 90 12/19/20 16:00 Resp 31 H 12/19/20 16:00 BP 135/101 12/19/20 16:00 Pulse Ox 92 12/19/20 16:00 12/19/20 12/19/20 12/19/20 06:59 14:59 22:59 Intake Total 360 / 360 Output Total 550 / 1950 500 / 500 Balance -550 / -1850 -140 / -140 Physical Exam Narrative: EXAM NARRATIVE: elderly male sitting in chair with heated high flow 95% No active chest pain however noticed conversational dyspnea Bilateral breath sounds no adventitious rhonchi or crackles or crepitation Distended abdomen with obesity Lower extremity no edema EOMI, PERRLA Awake alert oriented x3 GCS 15 Data : 12/19/20 05:13 12/19/20 05:13 Micro: Microbiology 12/14/20 14:44 Blood Culture - Final Blood NO GROWTH AFTER 5 DAYS 12/14/20 14:45 Blood Culture - Final Blood NO GROWTH AFTER 5 DAYS 12/19/20 09:00 Occult Blood (FIT) - Final Stool 12/19/20 08:00 MRSA Culture - Final Nose A&P Assessment and plan (1) Acute respiratory distress syndrome (ARDS) due to 2019 novel coronavirus: Status: Acute (2) Uncontrolled blood glucose: Status: Acute (3) Diabetes: Status: Acute Qualifiers: Diabetes mellitus type: type 2 Diabetes mellitus long term care pharmacist insulin use: without long term care pharmacist use Diabetes mellitus complication status: without complication Qualified Code(s): E11.9 - Type 2 diabetes mellitus without complications (4) Hepatosplenomegaly: Status: Acute (5) Goals of care, counseling/discussion: Status: Acute (6) Acute respiratory failure with hypoxia: Status: Acute (7) Pneumonia due to 2019-nCoV: Status: Acute (8) Morbid obesity: Status: Acute Additional A&P Information Persistent hypoxia related to COVID-19 ARDS Repeat CTA did not reveal pulmonary embolism or DVT No active signs of bacterial superimposed infection however he is getting empirical antibiotics Status post Actemra CRP trending down Keep alternating between BiPAP and heated high flow, at this point encouraged semi proning High risk for intubation updated Continue remdesivir and Decadron on multivitamins Blood noticed in stool patient is endorsing history of hemorrhoids Hemoglobin stable Uncontrolled blood sugar with new diagnosis of type 2 diabetes Will increase his Lantus today to 35 units twice a day Currently is on high-dose sliding scale Morbid obesity with hepatosplenomegaly No signs of decompensated liver failure Most likely related to COVID-19? Full code Consistent carb diet DVT prophylaxis Lovenox Attestations Medical Necessity Statement*: Continue ICU management high risk for intubation Time Spent in Patient Care: 16 - 35 minutes Coding Level of Care Code Acute Ice Cream Vendor for [facility] Fwd Diagnoses Acute respiratory distress syndrome (ARDS) due to 2019 novel coronavirus U07.1; J80 Uncontrolled blood glucose R73.09 Diabetes E11.9 Diabetes mellitus type: type 2 Diabetes mellitus long term care pharmacist insulin use: without halfway use Diabetes mellitus complication status: without complication Hepatosplenomegaly R16.2 Goals of care, counseling/discussion Z71.89 Acute respiratory failure with hypoxia J96.01 Pneumonia due to 2019-nCoV U07.1; J12.82 Morbid obesity E66.01
[2020-12-19 18:03] LABS: Glucose Point of Care 178 mg/dL (70-110)
[2020-12-19] MEDS: FUROsemide 10 mg/mL SDV 2mL 20 MG IVP (18:22)
[2020-12-19] MEDS: insulin glargine 100 units/1 mL 35 UNIT SUBCUT (18:27)
--- NOTE | 2020-12-19 19:19 | PC.NURSE ---
Shift Note Frequent safety and comfort rounds continue. Orders and/or nursing care completed as indicated. Patient monitored for response to intervention and treatment(s). and patient updated on status and plan of care. education provided regarding lasix administration and insulin regimen. Continued to slowly wean bipap and HHF. Will continue to monitor.
[2020-12-19 20:41] LABS: Glucose Point of Care 194 mg/dL (70-110)
[2020-12-19] MEDS: dexamethasone 4 mg/mL INJ 6 MG IVP (21:35)
[2020-12-20] VITALS (57 sets, daily range): BP systolic 110–163; BP diastolic 77–99; PULSE 89–115; RESP 16–31; TEMP 36.8–37.1; O2SAT 75–93
[2020-12-20] MEDS: ipratropium-albuterol 3 mL Neb INHALATION ×4 (03:21→20:04)
[2020-12-20] MEDS: enoxaparin 100 mg/mL Syringe 180 MG SUBCUT ×2 (04:43→15:57)
[2020-12-20 04:47] LABS: ABG PCO2 37.9 mmHg (35-45); ABG PH Result 7.45 (7.35-7.45); Arterial Blood Gas Hematocrit 52.2 % (42-52); Base Excess ABG 2.6 mmol/L (-2.0-2.0); Blood Gas Allen Test Pos; Blood Gas Operator Identificat JB; Blood Gas Sample Site Radial, right; Blood Gas Sample Type Arterial; HCO3 ABG 26.5 mmol/L (22-26); Oxygen Device BIPAP; PO2 ABG 62.7 mmHg (80.0-100.0)
[2020-12-20] MEDS: levoFLOXacin 750 mg Tablet PO (05:08)
[2020-12-20] MEDS: budesonide 0.5 mg/2 mL Neb INHALATION ×2 (08:01→20:04)
[2020-12-20 08:20] LABS: Glucose Point of Care 198 mg/dL (70-110)
[2020-12-20 08:51] LABS: Anion Gap 15.6 (5-19); Blood Urea Nitrogen 10 mg/dL (6-20); C Reactive Protein 6.2 mg/L (0.0-4.9); Calcium 8.1 mg/dL (8.5-10.5); Carbon Dioxide 26 mmol/L (22-29); Chloride 95 mmol/L (98-107); Glomerular Filtration Rate 155.2 mL/min (90-130); Glucose 191 mg/dL (65-115); Osmolality Calculated 278 mOsm/kg (285-295); Potassium 4.6 mmol/L (3.5-5.1); Sodium 132 mmol/L (136-145)
[2020-12-20] MEDS: ascorbic acid 500 mg Tablet PO ×2 (09:53→17:39)
[2020-12-20] MEDS: cholecalciferol (vitamin D3) 1,000 unit Tablet 1000 UNIT PO (09:53)
[2020-12-20] MEDS: zinc gluconate 50 mg Tablet PO (09:53)
[2020-12-20] MEDS: pantoprazole DR 40 mg Tablet PO (09:53)
[2020-12-20] MEDS: insulin glargine 100 units/1 mL 35 UNIT SUBCUT ×2 (09:54→17:39)
[2020-12-20 12:17] LABS: Glucose Point of Care 127 mg/dL (70-110)
--- NOTE | 2020-12-20 12:25 | PM.PN ---
Subjective Subjective: Interval history: Overnight O2 saturation has slightly worsened today he is requiring 90% heated high flow with 60 L overnight BiPAP at 85% PO2 62 patient is endorsing feeling better however he has conversational dyspnea updated He has been try to get out of bed sit in a chair He is also trying to sleep in lateral position Adequate p.o. intake no diarrhea, has stayed afebrile Complaining of nasal congestion Vitals/I&O/Wt Last Vital Signs Temp 98.3 F 12/20/20 04:00 Pulse 100 12/20/20 08:07 Resp 24 H 12/20/20 08:07 BP 151/98 12/20/20 03:30 Pulse Ox 93 12/20/20 08:07 12/19/20 12/20/20 12/20/20 22:59 06:59 14:59 Intake Total 200 / 560 Output Total 1000 / 1500 600 / 2100 Balance -800 / -940 -600 / -1540 Physical Exam Narrative: EXAM NARRATIVE: Patient comfortably sitting in chair however has conversational dyspnea Heated high flow 60 L 90% S1, S2 Distended abdomen Morbid obese Bilateral breath sounds without rhonchi Nasal congestion hyperemia of eyes noticed bilaterally No neurological deficits No lower extremity edema Data : 12/19/20 05:13 12/20/20 07:55 Micro: Microbiology 12/14/20 14:44 Blood Culture - Final Blood NO GROWTH AFTER 5 DAYS 12/14/20 14:45 Blood Culture - Final Blood NO GROWTH AFTER 5 DAYS 12/19/20 09:00 Occult Blood (FIT) - Final Stool 12/19/20 08:00 MRSA Culture - Final Nose A&P Assessment and plan (1) Hepatosplenomegaly: Status: Acute (2) Diabetes: Status: Acute Qualifiers: Diabetes mellitus type: type 2 Diabetes mellitus halfway insulin use: without extermination supervisor use Diabetes mellitus complication status: without complication Qualified Code(s): E11.9 - Type 2 diabetes mellitus without complications (3) Goals of care, counseling/discussion: Status: Acute (4) Uncontrolled blood glucose: Status: Acute (5) Acute respiratory distress syndrome (ARDS) due to 2019 novel coronavirus: Status: Acute (6) Acute respiratory failure with hypoxia: Status: Acute (7) Pneumonia due to 2019-nCoV: Status: Acute (8) Respiratory failure: Status: Acute (9) Morbid obesity: Status: Acute (10) COVID-19 determined by clinical diagnostic criteria: Status: Acute (11) Pneumonia: Status: Acute Qualifiers: Pneumonia type: due to unspecified organism Laterality: bilateral Lung location: unspecified part of lung Qualified Code(s): J18.9 - Pneumonia, unspecified organism (12) Hypoxia: Status: Acute Additional A&P Information Persistent hypoxia ARDS COVID-19 Heated high flow 60 L, 90% Patient is trying to sleep in lateral position Getting out of bed to chair Able to finish his meals 6 to 70% He does desaturate quickly on minimal exertion Patient is agreeable to be transferred to [facility] if he gets accepted for vasodilatory, use of prostacyclin or nitrous oxide High risk for intubation Continue ICU management Continue multivitamins, remdesivir, Decadron, status post Actemra Full code Consistent carb diet Hyperglycemia controlled with higher dose of Lantus Attestations Medical Necessity Statement*: Continue ICU management Time Spent in Patient Care: 16 - 35 minutes Coding Level of Care Code Acute Laborer [employer] for Chg Fwd Diagnoses Hepatosplenomegaly R16.2 Diabetes E11.9 Diabetes mellitus type: type 2 Diabetes mellitus extermination supervisor insulin use: without extermination supervisor use Diabetes mellitus complication status: without complication Goals of care, counseling/discussion Z71.89 Uncontrolled blood glucose R73.09 Acute respiratory distress syndrome (ARDS) due to 2019 novel coronavirus U07.1; J80 Acute respiratory failure with hypoxia J96.01 Pneumonia due to 2019-nCoV U07.1; J12.82 Respiratory failure J96.90 Morbid obesity E66.01 COVID-19 determined by clinical diagnostic criteria U07.1 Pneumonia J18.9 Pneumonia type: due to unspecified organism Laterality: bilateral Lung location: unspecified part of lung Hypoxia R09.02
[2020-12-20] MEDS: fluticasone nasal spray 16gm Btl 2 SPRAY NASAL (13:20)
[2020-12-20] MEDS: FUROsemide 10 mg/mL SDV 2mL 20 MG IVP (13:20)
[2020-12-20 14:27] LABS: Amphetamines Screen Urine Negative (Negative); Barbiturates Screen Urine Negative (Negative); Benzodiazepines Screen Urine Negative (Negative); Cocaine Screen Urine Negative (Negative); Opiate Screen Urine Positive (Negative); PCP Screen Urine Negative (Negative); THC Screen Urine Negative (Negative)
--- NOTE | 2020-12-20 14:30 | PC.NURSE ---
Automatic cuff inflating, but no B/P recording. Cuff and Line replaced.
[2020-12-20 17:39] LABS: Glucose Point of Care 139 mg/dL (70-110)
--- NOTE | 2020-12-20 19:24 | PC.NURSE ---
Shift Note Pleasant pt. He struggled some today with oxygenation. Used Bipap a 80% through out day except for meal times, which he used heated high flow. HIs sats would drop to 79% and pt would be asymptomatic. Frequent safety and comfort rounds continue. Orders and/or nursing care completed as indicated. Patient monitored for response to intervention and treatment(s). Education provided includes IS, acapello, breathing through nose not mouth, Flonase, Lasix and continued paln of care. Patient and/or sales and marketing representative verbalized understanding.. Will continue to monitor.
[2020-12-20 21:28] LABS: Glucose Point of Care 152 mg/dL (70-110)
[2020-12-20] MEDS: dexamethasone 4 mg/mL INJ 6 MG IVP (21:57)
[2020-12-21] VITALS (61 sets, daily range): BP systolic 100–164; BP diastolic 61–134; PULSE 77–116; RESP 20–30; TEMP 36.4–37.9; O2SAT 71–92
[2020-12-21] MEDS: dexmedeTOMIDine 0.9 % NaCL 400 MCG/100 ML PREMIX IV (02:52)
[2020-12-21] MEDS: enoxaparin 100 mg/mL Syringe 180 MG SUBCUT ×2 (03:57→16:57)
[2020-12-21 05:30] LABS: C Reactive Protein 7.2 mg/L (0.0-4.9)
[2020-12-21] MEDS: levoFLOXacin 750 mg Tablet PO (05:30)
[2020-12-21 05:31] LABS: D Dimer 7.18 ug/mIFEU (0-0.59)
[2020-12-21 05:34] LABS: Procalcitonin 0.15 ng/mL (0-0.5)
[2020-12-21] MEDS: dexmedeTOMIDine 0.9 % NaCL 400 MCG/100 ML PREMIX 27.22 MCG IV (05:59)
[2020-12-21 06:12] LABS: ABG PCO2 42.9 mmHg (35-45); ABG PH Result 7.41 (7.35-7.45); Arterial Blood Gas Hematocrit 50.9 % (42-52); Base Excess ABG 1.7 mmol/L (-2.0-2.0); Blood Gas Allen Test Pos; Blood Gas Sample Type Arterial; HCO3 ABG 26.9 mmol/L (22-26); Oxygen Device BIPAP; PO2 ABG 58.5 mmHg (80.0-100.0)
[2020-12-21 07:38] LABS: Glucose Point of Care 238 mg/dL (70-110)
[2020-12-21] MEDS: ipratropium-albuterol 3 mL Neb INHALATION ×3 (07:59→21:22)
[2020-12-21] MEDS: budesonide 0.5 mg/2 mL Neb INHALATION ×2 (07:59→21:21)
--- NOTE | 2020-12-21 08:42 | PC.CHAP ---
Pastoral Care Encounter/Spiritual Assessment Type of Contact [] Declined hearth feeder visit [] Patient/Family/Request visit [] Outpatient visit [] Follow-up visit [] Physician referral [] Code/Alert [x] Routine visit [] Staff referral [] Actively dying [] Patient sleeping [] Family support [] [] Out of room [] Palliative care [] [] Receiving care in room [] Pre-surgical visit [] Trauma [] Long length of stay [x] ICU visit [] Other: Relational/Emotional Strength [] Patient feels connected with others/family/visitors/staff [] Distress [] Loneliness/isolation [] Abandonment Spirituality of Patient [] Person of Margarita [] Attends Evangelical of their Margarita [] Believes in Prayer [] Reads Bible or Jew materials [] There are Spiritual issues to be addressed Information Services Manager Interventions [x] Prayer [] Active listening [] Non-anxious presence [] Spiritual/emotional support [] Crisis/trauma care [] Spiritual counseling [] Bereavement support [] Provided bereavement packet [] Provided Bible/devotional materials [] Provided toy/stuffed animal, coloring book to patient or family member [] Provided Communion [] Anointing/[place] [] Salvation [x] Completed spiritual assessment [] Other: Impact on Illness or Injury [] Angry [] Fearful [] Anxious [] Often cries [] Exhaustion [] Unable to work [] Unable to attend buddhist [] Unable to walk/stand [] Unable to read [] Unable to drive [] Unable to eat/drink [] Unable to sleep [] Unable to be with family [] Patient intubated [] Other: Summary patient setting up in bed... Time spent with patient
[2020-12-21] MEDS: pantoprazole DR 40 mg Tablet PO (09:41)
[2020-12-21] MEDS: zinc gluconate 50 mg Tablet PO (09:41)
[2020-12-21] MEDS: ascorbic acid 500 mg Tablet PO ×2 (09:41→18:12)
[2020-12-21] MEDS: cholecalciferol (vitamin D3) 1,000 unit Tablet 1000 UNIT PO (09:41)
[2020-12-21] MEDS: insulin glargine 100 units/1 mL 35 UNIT SUBCUT (09:42)
[2020-12-21 09:50] LABS: ABG PCO2 41.4 mmHg (35-45); ABG PH Result 7.43 (7.35-7.45); Alveolar-Arterial Oxygen Gradi 68.7 mmHg (5-10); Arterial Blood Gas Hematocrit 50.9 % (42-52); Base Excess ABG 2.7 mmol/L (-2.0-2.0); Blood Gas Allen Test Pos; Blood Gas Operator Identificat CAK; Blood Gas Sample Site Radial, left; Blood Gas Sample Type Arterial; Carboxyhemoglobin 1.3 %THgb (0.4-20.1); HCO3 ABG 27.4 mmol/L (22-26); HGB O2 Sat 90.6 % (95-100); Ionized Calcium Level - ABG 1.1 mmol/L (1.1-1.4); Methemoglobin 0.7 % (0.4-1.5); Oxygen Device BIPAP; Oxygen Saturation ABG 92.4; PO2 ABG 64.7 mmHg (80.0-100.0); Potassium Level - ABG 4.4 mmol/L (3.5-5.0); Total Hemoglobin 16.6 g/dL (14-18)
[2020-12-21] MEDS: fluticasone nasal spray 16gm Btl 2 SPRAY NASAL (10:28)
[2020-12-21 12:27] LABS: Glucose Point of Care 292 mg/dL (70-110)
--- NOTE | 2020-12-21 14:41 | P.PN_ITS ---
Subjective Subjective: Interval history: -Patient is seen sleeping in his bed -Upon waking up he responds and answers all questions -Currently is on BiPAP % and saturating 92% -Denied any respiratory distress and says he is feeling fine -Labs and imaging reviewed Medications: Reviewed: Yes Vitals/I&O/Wt Last Vital Signs Temp 97.7 F 12/21/20 07:30 Pulse 88 12/21/20 13:43 Resp 23 H 12/21/20 13:35 BP 128/77 12/21/20 07:30 Pulse Ox 92 12/21/20 13:35 12/20/20 12/21/20 12/21/20 22:59 06:59 14:59 Intake Total 500 / 2000 147.781 / 2147.781 49.223 / 49.223 Output Total 650 / 1550 325 / 1875 600 / 600 Balance -150 / 450 -177.219 / 272.781 -550.777 / -550.777 Physical Exam Narrative: EXAM NARRATIVE: General: Morbidly obese young male, alert, not in acute respiratory distress HEENT: conj clear, EOMI, PERRL, mmm, Neck: supple, no meningismus Heme: no cervical LAP Pulmonary: Improving coarse crepitations Cardiovascular: rrr, nl s1s2, no mrg Abdomen: soft, nt, nd, no r/g, bs+ Extremities: pulses +, no edema, no c/c : no CVA tenderness Skin: intact, no rash MSK: no back or neck pain Neurologic: grossly intact Data : 12/19/20 05:13 12/20/20 07:55 Other Labs: Laboratory Results WBC 9.6 10^3/uL (4.0-10.0) 12/19/20 05:13 RBC 5.20 10^6/uL (4.1-5.3) 12/19/20 05:13 Hgb 15.5 g/dL (11.7-16.6) 12/19/20 05:13 Hct 46.5 % (42.0-52.0) 12/19/20 05:13 MCV 89.4 fl (80-94) 12/19/20 05:13 MCH 29.8 pg (28.0-34.0) 12/19/20 05:13 MCHC 33.3 g/dL (30.0-36.0) 12/19/20 05:13 RDW 13.0 % (12.1-15.1) 12/19/20 05:13 Plt Count 172 10^3/cmm (130-400) 12/19/20 05:13 MPV 10.5 fL (7.4-10.4) H 12/19/20 05:13 Neut % (Auto) 86.1 % 12/19/20 05:13 Lymph % (Auto) 7.1 % 12/19/20 05:13 [place] % (Auto) 5.5 % 12/19/20 05:13 Eos % (Auto) 0.1 % 12/19/20 05:13 Baso % (Auto) 0.1 % 12/19/20 05:13 Neut # (Auto) 8.23 10^3/uL (1.8-7.7) H 12/19/20 05:13 Lymph # (Auto) 0.7 10^3/uL (0.8-4.8) L 12/19/20 05:13 [place] # (Auto) 0.5 10^3/uL (0.2-0.9) 12/19/20 05:13 Eos # (Auto) 0.0 10^3/uL (0.0-0.8) 12/19/20 05:13 Baso # (Auto) 0.0 10^3/uL (0.0-0.1) 12/19/20 05:13 Nucleated RBC % (auto) 0 % 12/19/20 05:13 Nucleated RBCs # 0.0 /100WBC 12/19/20 05:13 D-Dimer 7.18 ug/mIFEU (0-0.59) H 12/21/20 03:45 Specimen Type Arterial 12/21/20 09:39 Sample Site Radial, left 12/21/20 09:39 ABG pH 7.43 (7.35-7.45) 12/21/20 09:39 ABG pCO2 41.4 mmHg (35-45) 12/21/20 09:39 ABG pO2 64.7 mmHg (80.0-100.0) L 12/21/20 09:39 ABG HCO3 27.4 mmol/L (22-26) H 12/21/20 09:39 ABG O2 Saturation 92.4 12/21/20 09:39 ABG Base Excess 2.7 mmol/L (-2.0-2.0) H 12/21/20 09:39 Dewayne Test Pos 12/21/20 09:39 A-a O2 Gradient 68.7 mmHg (5-10) H 12/21/20 09:39 Hematocrit 50.9 % (42-52) 12/21/20 09:39 Hgb O2 Saturation 90.6 % (95-100) L 12/21/20 09:39 Carboxyhemoglobin 1.3 %THgb (0.4-20.1) 12/21/20 09:39 Methemoglobin 0.7 % (0.4-1.5) 12/21/20 09:39 Total Hemoglobin 16.6 g/dL (14-18) 12/21/20 09:39 Sodium 135.0 mmol/L (131-143) 12/21/20 09:39 Potassium 4.4 mmol/L (3.5-5.0) 12/21/20 09:39 Glucose 176.0 mg/dL (70-115) H 12/21/20 09:39 Ionized Calcium 1.1 mmol/L (1.1-1.4) 12/21/20 09:39 O2 Delivery Device Bipap 12/21/20 09:39 O2 Liters/Min 55.0 % 12/16/20 15:03 FiO2 90.0 % 12/21/20 09:39 PEEP 10.0 cmH20 12/21/20 05:58 Mode BiPAP 25/0312/19/20 04:00 Specimen Drawn By lidia 12/19/20 04:00 Outside Barrel Lathe Operator ID Cak 12/21/20 09:39 Sodium 132 mmol/L (136-145) L 12/20/20 07:55 Potassium 4.6 mmol/L (3.5-5.1) 12/20/20 07:55 Chloride 95 mmol/L (98-107) L 12/20/20 07:55 Carbon Dioxide 26 mmol/L (22-29) 12/20/20 07:55 Anion Gap 15.6 (5-19) 12/20/20 07:55 BUN 10 mg/dL (6-20) 12/20/20 07:55 Creatinine 0.6 mg/dL (0.7-1.2) L 12/20/20 07:55 GFR Calculation 155.2 mL/min (90-130) H 12/20/20 07:55 Glucose 191 mg/dL (65-115) H 12/20/20 07:55 POC Glucose 292 mg/dL (70-110) H 12/21/20 12:23 Estimat Average Glucose 174 12/17/20 03:20 Hemoglobin A1c 7.7 % (4.0-6.0) H 12/17/20 03:20 Calculated Osmolality 278 mOsm/kg (285-295) L 12/20/20 07:55 Lactic Acid 1.1 mmol/L (0.5-2.2) 12/14/20 15:29 Calcium 8.1 mg/dL (8.5-10.5) L 12/20/20 07:55 Total Bilirubin 0.4 mg/dL (0.15-1.2) 12/17/20 03:20 AST 63 U/L (0-40) H 12/17/20 03:20 ALT 46 U/L (0-41) H 12/17/20 03:20 Alkaline Phosphatase 64 IU/L (40-130) 12/17/20 03:20 Lactate Dehydrogenase 924 U/L (135-225) H 12/19/20 05:13 Troponin T Gen 5 ng/L 6 ng/L (0-15) 12/14/20 15:29 C-Reactive Protein 7.2 mg/L (0.0-4.9) H 12/21/20 03:45 NT-Pro-B Natriuret Pep 11 pg/mL (0-125) 12/15/20 04:55 Total Protein 7.1 g/dL (6.6-8.7) 12/17/20 03:20 Albumin 3.4 g/dL (3.5-5.2) L 12/17/20 03:20 Globulin 3.7 g/dL (1.3-4.6) 12/17/20 03:20 Procalcitonin 0.15 ng/mL (0-0.5) 12/21/20 03:45 Urine Opiates Screen Positive ng/mL (Negative) H 12/20/20 13:00 Ur Barbiturates Screen Negative ng/mL (Negative) 12/20/20 13:00 Ur Phencyclidine Scrn Negative ng/mL (Negative) 12/20/20 13:00 Ur Amphetamines Screen Negative ng/mL (Negative) 12/20/20 13:00 U Benzodiazepines Scrn Negative ng/mL (Negative) 12/20/20 13:00 Urine Cocaine Screen Negative ng/mL (Negative) 12/20/20 13:00 U Marijuana (THC) Screen Negative ng/mL (Negative) 12/20/20 13:00 Nasal/Oral COVID-19 PCR Detected H 12/14/20 14:45 SARS-CoV-2 Ag (Rapid) Negative (Negative) 12/14/20 14:45 Impressions Chest X-Ray 12/17/20 04:00 Impression: 1. No change in bilateral pulmonary opacities. 2. Cardiomegaly. Chest CTA 12/18/20 08:23 IMPRESSION: 1. Proximal main pulmonary arteries are normal. No evidence of proximal pulmonary embolus. Distal vessels not well evaluated due to body habitus and breathing artifact. 2. Progressed diffuse bilateral hazy groundglass infiltrates with more confluence today. Findings suspicious for COVID 19 pneumonia. 3. Prominent AP window, hilar and subcarinal lymph nodes likely reactive. 4. Hepatomegaly and mild splenomegaly. A&P Assessment and plan (1) Acute respiratory failure with hypoxia: Status: Acute (2) Acute respiratory distress syndrome (ARDS) due to 2019 novel coronavirus: Status: Acute (3) Morbid obesity: Status: Acute (4) Uncontrolled blood glucose: Status: Acute (5) Goals of care, counseling/discussion: Status: Acute (6) Diabetes: Status: Acute Qualifiers: Diabetes mellitus type: type 2 Diabetes mellitus predatory animal exterminator insulin use: without care home use Diabetes mellitus complication status: without complic ation Qualified Code(s): E11.9 - Type 2 diabetes mellitus without complications (7) Occult blood positive stool: Status: Acute (8) Suspected pulmonary embolism: Status: Acute #Acute hypoxic respiratory failure secondary to ARDS due to COVID-19 pneumonia #Morbid obesity with BMI 54 #Uncontrolled sugars-A1c 7.7-newly diagnosed diabetes #Deranged LFTs-likely secondary to Covid - seen sitting in chair, in no acute respiratory distress -Patient was placed on Precedex drip yesterday night -Saturating 88 to 92% on BiPAP 16/8 FiO2 90% - titrate down FIO2 down to keep sats > 88% -ABG today morning 7.43/41/64/20 7/92%/on BiPAP / and FiO2 90% -Encouraged to use BiPAP in the morning as well with intermittent breaks, incentive spirometry and out of bed to chair -Currently on 5-day remdesivir protocol and dexamethasone 6 mg daily for 10 days-started 12/14/2020 -S/p one dose Tocilizumab 12/15/2020; downtrending CRP 169> 63 > 28 > 14 > 7.2 -On scheduled Pulmicort and DuoNeb inhalers -On Levaquin 750 mg p.o. daily started 12/16/2020-day 6-DC after tomorrow dose -Blood cultures so far negative, procalcitonin negative, sputum Gram stain - normal jason - Continue incentive spirometry - CT chest on 12/14/2020-negative for PE but changes consistent with moderate to severe bilateral COVID-19 pneumonia- - D-dimer increased significantly compared admission-Anticoagulation increase to full dose and repeat CTA did not show any PE in the proximal main pulmonary arteries, but distal vessels were not well visualized and bilateral lower extremity Doppler was also negative -Currently on full dose anticoagulation for suspected PE/DVT as D-dimer was high and cannot rule out PE in distal vessels -Currently on regular diet -New onset diabetes A1c 7.7-patient also on steroids- sugars still uncontrolled- on Lantus 35 twice daily continue scale coverage-increase Lantus to 45 twice daily -Improving LFTs -Full code -Continue close clinical monitoring for his respiratory status and is at high risk for intubation #Stool occult positive -Last H&H on 12/19/2020 -Repeat CBC today to monitor H&H -Patient is on steroids and also anticoagulation -Currently on Protonix 40 mg p.o. daily -If there is drop in H&H-stop anticoagulation and transfuse to keep H&H greater than 10/28 -Based on his morbid obesity-patient might have coexisting obstructive sleep apnea and obesity hypoventilation syndrome-recommended BiPAP at nighttime and plan for sleep study as outpatient -At this point of time patient did not appear to be in any sort of respiratory distress and looked extremely comfortable, explained that he is at high risk for intubation and related complications with any indication of worsening respiratory distress and dropping saturations-he verbalized understanding and would want to decide about getting intubated at that point of time and states that he is breathing is currently good. -Hospitalist updated patient's about the medical condition and impending respiratory failure which might require emergency intubation Recommendations conveyed to hospitalist taking care of the patient, RN and RT taking care of the patient Attestations Medical Necessity Statement*: Acute hypoxic respiratory failure secondary to ARDS due to COVID-19 pneumonia requiring high flow oxygen 95%-impending respiratory failure-need close respiratory monitoring in ICU for possible intubation if patient deteriorates from here. Time Spent in Patient Care: Greater than 35 minutes (>than 50% of time spent in counselling and/or direct pt care on unit) . Critical Care Time: Critical Care Time (min): 45 Coding Level of Care Code Acute Elastic Tape Inserter for Lucia Abdul Diagnoses Acute respiratory failure with hypoxia J96.01 Acute respiratory distress syndrome (ARDS) due to 2019 novel coronavirus U07.1; J80 Morbid obesity E66.01 Uncontrolled blood glucose R73.09 Goals of care, counseling/discussion Z71.89 Diabetes E11.9 Diabetes mellitus type: type 2 Diabetes mellitus predatory animal exterminator insulin use: without care home use Diabetes mellitus complication status: without complication Occult blood positive stool R19.5 Suspected pulmonary embolism R09.89
--- NOTE | 2020-12-21 15:18 | XR_ITS ---
WS: [id number] XR chest 1V portable [id number] REASON FOR EXAM: pneumonia FINDINGS: Diffuse bilateral infiltrates. Compared to previous examination of 12/17/2020 a small apical right pneumothorax has developed. There i s also a pneumomediastinum and air dissecting in the soft tissue planes of the right chest wall and b ase of the neck bilaterally. XR/XR chest 1V portable [id number] IMPRESSION: Interval development of barotrauma as above.
[2020-12-21 17:12] LABS: Glucose Point of Care 114 mg/dL (70-110)
--- NOTE | 2020-12-21 17:26 | PM.PN ---
Subjective Subjective: Interval history: Overnight required Precedex for agitation this morning we have discontinued Precedex because of patient's sedation he was saturating 89 to 90% on BiPAP FiO2 85 to 90% updated D-dimer trended down FOBT positive requested repeat CBC(please note patient does have history of hemorrhoids this was addressed the day we sent stool sample) Vitals/I&O/Wt Last Vital Signs Temp 97.7 F 12/21/20 08:30 Pulse 101 H 12/21/20 16:00 Resp 23 H 12/21/20 16:00 BP 154/91 12/21/20 16:00 Pulse Ox 88 L 12/21/20 16:00 12/21/20 12/21/20 12/21/20 06:59 14:59 22:59 Intake Total 147.781 / 2147.781 1149.223 / 1149.223 Output Total 325 / 1875 600 / 600 Balance -177.219 / 272.781 549.223 / 549.223 Physical Exam Narrative: EXAM NARRATIVE: Morbid obese male sedated however arousable does not have any neurological deficits S1, S2 sinus tachycardia distended abdomen bowel sound present grossly no edema EOMI, PERRLA awake and alert oriented x3 GCS 15, drowsy currently on BiPAP Data : 12/19/20 05:13 12/20/20 07:55 A&P Assessment and plan (1) Suspected pulmonary embolism: Status: Acute (2) Occult blood positive stool: Status: Acute (3) Hepatosplenomegaly: Status: Acute (4) Diabetes: Status: Acute Qualifiers: Diabetes mellitus type: type 2 Diabetes mellitus intermodal dispatcher insulin use: without longterm use Diabetes mellitus complication status: without complication Qualified Code(s): E11.9 - Type 2 diabetes mellitus without complications (5) Goals of care, counseling/discussion: Status: Acute (6) Uncontrolled blood glucose: Status: Acute (7) Acute respiratory distress syndrome (ARDS) due to 2019 novel coronavirus: Status: Acute (8) Acute respiratory failure with hypoxia: Status: Acute (9) Morbid obesity: Status: Acute (10) Hypoxia: Status: Acute Additional A&P Information Persistent hypoxia related to COVID-19 ARDS currently on BiPAP 90% 16/10 saturating 90 to 91% drowsy with Precedex which has been turned off patient is answering questions no neurological deficits plan to give him a break from BiPAP transition to heated high flow and let him eat once he is more awake continue Decadron status post 1 dose of Actemra, status post remdesivir regimen inflammatory markers trending down Hepatosplenomegaly with new onset of type 2 diabetes FOBT positive patient is endorsing hemorrhoids hemoglobin has been stable request another CBC hemodynamically stable his Lantus dose has been increased to 42 units twice daily Positive net fluid balance he did receive Lasix yesterday, will repeat 1 dose today Empirical antibiotics to be discontinued tomorrow Full code consistent carb diet full code plan discussed with radiation protection specialist Attestations Medical Necessity Statement*: Continue ICU management Time Spent in Patient Care: 16 - 35 minutes Coding Level of Care Code Acute Fur Scraper for Chg Fwd Diagnoses Suspected pulmonary embolism R09.89 Occult blood positive stool R19.5 Hepatosplenomegaly R16.2 Diabetes E11.9 Diabetes mellitus type: type 2 Diabetes mellitus intermodal dispatcher insulin use: without longterm use Diabetes mellitus complication status: without complication Goals of care, counseling/discussion Z71.89 Uncontrolled blood glucose R73.09 Acute respiratory distress syndrome (ARDS) due to 2019 novel coronavirus U07.1; J80 Acute respiratory failure with hypoxia J96.01 Morbid obesity E66.01 Hypoxia R09.02
[2020-12-21 17:47] LABS: Hematocrit 48.2 % (42.0-52.0); Hemoglobin 15.8 g/dL (11.7-16.6); Mean Corpuscular HGB Conc 32.8 g/dL (30.0-36.0); Mean Corpuscular Hemoglobin 29.9 pg (28.0-34.0); Mean Corpuscular Volume 91.1 fl (80-94); Mean Platelet Volume 11.3 fL (7.4-10.4); Platelet Count 185 10^3/cmm (130-400); Red Blood Count 5.29 10^6/uL (4.1-5.3); Red Cell Distribution Width 13.1 % (12.1-15.1); White Blood Count 13.8 10^3/uL (4.0-10.0)
[2020-12-21] MEDS: FUROsemide 10 mg/mL SDV 2mL 20 MG IVP (18:12)
[2020-12-21 18:15] LABS: Absolute Eosinophils 0.1 10^3/cmm (0.0-0.7); Absolute Neutrophil 12.8 10^3/cmm (1.4-6.5); Absolute Segmented Neutrophil 12.6 10/cmm (1.6-7.1); Band Neutrophils Absolute 0.3 10^3/cmm (0.0-1.2); Eosinophils 1 %; Giant Platelets Trace; Lymphocytes 5 %; Lymphocytes Absolute 0.7 10^3/cmm (1.2-3.4); Monocytes Absolute 0.1 10^3/cmm (0.1-0.6); Platelet Estimate Normal (Normal); Segmented Neutrophils 91 %; Total Cells Counted 100 (0-100)
--- NOTE | 2020-12-21 19:34 | PC.NURSE ---
Shift Note: pt on Precedex at beginning of shift very drowsy. Precedex weanined off, pt then a lert enough to go et out of bed to chair. Today bariatric chair utilized, he could lean back more and it eased his breathing. He used BiPap when not visiting with his or eating, at these times heated high flow now at 35liters a nd 100%. BiPap was decreased to 85%fio2. Lasix admin this evening. He has had over 700 ml urine output this shift. He has had a bowel movement today.. Frequent safety and comfort rounds continue. Orders and/or nursing care completed as indicated. Patient monitored for response to intervention and treatment(s). Education provided includes Precedex, decadron, blood sugars and infection. Patient and/or operations support representative verbalized understanding of continued plan of care. Will continue to monitor.
[2020-12-21 21:02] LABS: Glucose Point of Care 106 mg/dL (70-110)
[2020-12-21] MEDS: insulin glargine 100 units/1 mL 42 UNIT SUBCUT (21:26)
[2020-12-21] MEDS: dexamethasone 4 mg/mL INJ IVP (21:27)
[2020-12-21 21:35] LABS: Alanine Aminotransferase 38 U/L (0-41); Albumin Level 3.5 g/dL (3.5-5.2); Alkaline Phosphatase 109 IU/L (40-130); Aspartate Amino Transferase 50 U/L (0-40); Blood Urea Nitrogen 13 mg/dL (6-20); Carbon Dioxide 26 mmol/L (22-29); Chloride 94 mmol/L (98-107); Globulin 2.8 g/dL (1.3-4.6); Glomerular Filtration Rate 191.5 mL/min (90-130); Glucose 130 mg/dL (65-115); Osmolality Calculated 276 mOsm/kg (285-295); Sodium 132 mmol/L (136-145); Total Bilirubin 0.9 mg/dL (0.15-1.2); Total Protein 6.3 g/dL (6.6-8.7)
[2020-12-22] VITALS (60 sets, daily range): BP systolic 109–165; BP diastolic 66–113; PULSE 95–129; RESP 22–32; TEMP 36.8–37.4; O2SAT 80–92
[2020-12-22] MEDS: fluticasone nasal spray 16gm Btl 2 SPRAY NASAL (02:04)
[2020-12-22] MEDS: ipratropium-albuterol 3 mL Neb INHALATION ×4 (02:22→20:39)
[2020-12-22] MEDS: enoxaparin 100 mg/mL Syringe 180 MG SUBCUT (04:47)
[2020-12-22 04:56] LABS: ABG PH Result 7.43 (7.35-7.45); Arterial Blood Gas Hematocrit 50.4 % (42-52); Base Excess ABG 3.3 mmol/L (-2.0-2.0); Blood Gas Allen Test Pos; Blood Gas Sample Type Arterial; HCO3 ABG 28.1 mmol/L (22-26); PO2 ABG 50.9 mmHg (80.0-100.0)
[2020-12-22 05:01] LABS: Blood Gas Sample Site Radial, right; Oxygen Device BIPAP
[2020-12-22 06:05] LABS: Basophils % 0.2 %; Eosinophils # 0.2 10^3/uL (0.0-0.8); Eosinophils % 1.4 %; Hematocrit 47.8 % (42.0-52.0); Hemoglobin 15.9 g/dL (11.7-16.6); Lymphocytes # 0.7 10^3/uL (0.8-4.8); Lymphocytes % 4.8 %; Mean Corpuscular HGB Conc 33.3 g/dL (30.0-36.0); Mean Corpuscular Hemoglobin 29.7 pg (28.0-34.0); Mean Corpuscular Volume 89.3 fl (80-94); Mean Platelet Volume 10.7 fL (7.4-10.4); Monocytes # 0.5 10^3/uL (0.2-0.9); Monocytes % 3.4 %; Neutrophils # 12.17 10^3/uL (1.8-7.7); Neutrophils % 87.9 %; Nucleated Red Blood Cells % 0 %; Platelet Count 214 10^3/cmm (130-400); Red Blood Count 5.35 10^6/uL (4.1-5.3); White Blood Count 13.8 10^3/uL (4.0-10.0)
[2020-12-22 06:24] LABS: Anion Gap 15.5 (5-19); Blood Urea Nitrogen 13 mg/dL (6-20); Carbon Dioxide 26 mmol/L (22-29); Chloride 97 mmol/L (98-107); Glomerular Filtration Rate 191.5 mL/min (90-130); Glucose 169 mg/dL (65-115); Osmolality Calculated 282 mOsm/kg (285-295); Potassium 4.5 mmol/L (3.5-5.1); Sodium 134 mmol/L (136-145)
[2020-12-22 07:21] LABS: Glucose Point of Care 163 mg/dL (70-110)
[2020-12-22] MEDS: cholecalciferol (vitamin D3) 1,000 unit Tablet 1000 UNIT PO (08:10)
[2020-12-22] MEDS: ascorbic acid 500 mg Tablet PO ×2 (08:10→17:47)
[2020-12-22] MEDS: insulin glargine 100 units/1 mL 42 UNIT SUBCUT ×2 (08:11→21:38)
[2020-12-22] MEDS: pantoprazole DR 40 mg Tablet PO (08:11)
[2020-12-22] MEDS: zinc gluconate 50 mg Tablet PO (08:11)
[2020-12-22] MEDS: nystatin powder 15 gm Btl 1 APPLIC TOPICAL ×2 (08:13→17:48)
[2020-12-22] MEDS: budesonide 0.5 mg/2 mL Neb INHALATION ×2 (08:23→20:39)
--- NOTE | 2020-12-22 08:34 | XR_ITS ---
WS: [id number] XR chest 1V portable [id number] REASON FOR EXAM: dyspnea/cough FINDINGS: Lungs are significantly more opacified than on the examination of 12/21/2020. Small right apical pneumothorax has not significantly changed. Pneumomediastinum more prominent. The air in the soft tissue planes of the right chest wall and base of neck are somewhat less prominen t. XR/XR chest 1V portable [id number] IMPRESSION: Interval change in the chest as above.
--- NOTE | 2020-12-22 11:00 | XR_ITS ---
WS: [id number] XR chest 1V portable [id number] REASON FOR EXAM: Pneumothorax FINDINGS: Compared to the examination of 8:30 this a.m. there is less opacification of the lung parenchyma. The pneumomediastinum and soft tissue subcutaneous emphysema appear to be resolving. A small right apica l pneumothorax has not changed. XR/XR chest 1V portable [id number] IMPRESSION: Abnormal chest improving as above.
[2020-12-22 11:47] LABS: Glucose Point of Care 137 mg/dL (70-110)
--- NOTE | 2020-12-22 13:25 | P.PN_ITS ---
Subjective Subjective: Interval history: 100.2 with fever, viral, noted on chest x-ray, repeat x-ray at 11 AM showed improvement, patient was switched from BiPAP to heated high flow 60 L 100% updated, overnight events discussed with hothouse worker Plan was made to repeat chest x-ray at 11 AM in case he would require Thora vent however it showed improvement Vitals/I&O/Wt Last Vital Signs Temp 98.8 F 12/22/20 04:00 Pulse 105 H 12/22/20 12:49 Resp 27 H 12/22/20 12:49 BP 141/89 12/22/20 06:30 Pulse Ox 88 L 12/22/20 12:49 12/21/20 12/22/20 12/22/20 22:59 06:59 14:59 Intake Total 400 / 1549.223 Output Total 750 / 1350 375 / 1725 Balance -350 / 199.223 -375 / -175.777 Physical Exam Narrative: EXAM NARRATIVE: Patient was in semi-Moses position in his bed on BiPAP which was transitioned to heated high flow S1, S2 sinus tachycardia Crepitation noted anterior chest base of the neck Abdomen soft nontender distended with obesity Lower symmetry no edema EOMI, PERRLA No neurological deficits Data : 12/22/20 05:30 12/22/20 05:30 A&P Assessment and plan (1) Suspected pulmonary embolism: Status: Acute (2) Occult blood positive stool: Status: Acute (3) Hepatosplenomegaly: Status: Acute (4) Diabetes: Status: Acute Qualifiers: Diabetes mellitus type: type 2 Diabetes mellitus detention insulin use: without equipment operator intermodal yard use Diabetes mellitus complication status: without complication Qualified Code(s): E11.9 - Type 2 diabetes mellitus without complications (5) Goals of care, counseling/discussion: Status: Acute (6) Uncontrolled blood glucose: Status: Acute (7) Acute respiratory distress syndrome (ARDS) due to 2019 novel coronavirus: Status: Acute (8) Acute respiratory failure with hypoxia: Status: Acute (9) Pneumonia due to 2019-nCoV: Status: Acute (10) Respiratory failure: Status: Acute (11) COVID-19 determined by clinical diagnostic criteria: Status: Acute (12) Morbid obesity: Status: Acute (13) Barotrauma: Status: Acute (14) Acquired pneumomediastinum: Status: Acute Additional A&P Information Barotrauma ARDS COVID-19 Apical right-sided pneumothorax Pneumothorax improved on repeat chest x-ray, no need of Thora vent for now BiPAP discontinued currently on 60 L 100% saturating 88 to 89% No active chest pain or worsening of shortness of breath hemodynamically stable Weaning of Decadron Status post remdesivir and Actemra Continue multivitamins Hold full dose therapeutic dose of Lovenox in case he required any chest tube or Thora vent for worsening of pneumomediastinum or pneumothorax Occult blood positive history of hemorrhoids Hemoglobin stable New onset diabetes: Did notice blood sugar excursions but would like to monitor on 42 units twice daily Lantus with sliding scale Consistent carb diet Hepatosplenomegaly related to obesity Low-grade temperature Leukocytosis 13.8 Currently on Lovenox Cultures negative to date Consistent carb diet Holding therapeutic dose of Lovenox in case of any intervention needed in next 24 to 48 hours updated Full code Continue ICU management high risk for intubation Not a candidate of ECMO because of BMI High risk for transfer for use of Flolan at [facility] Medical Necessity Statement*: Continue ICU management Time Spent in Patient Care: Greater than 35 minutes Coding Level of Care Code Acute Office Clerk Routine for [facility] Fwd Diagnoses Suspected pulmonary embolism R09.89 Occult blood positive stool R19.5 Hepatosplenomegaly R16.2 Diabetes E11.9 Diabetes mellitus type: type 2 Diabetes mellitus detention insulin use: without equipment operator intermodal yard use Diabetes mellitus complication status: without complication Goals of care, counseling/discussion Z71.89 Uncontrolled blood glucose R73.09 Acute respiratory distress syndrome (ARDS) due to 2019 novel coronavirus U07.1; J80 Acute respiratory failure with hypoxia J96.01 Pneumonia due to 2019-nCoV U07.1; J12.82 Respiratory failure J96.90 COVID-19 determined by clinical diagnostic criteria U07.1 Morbid obesity E66.01 Barotrauma T70.29XA Acquired pneumomediastinum J98.2
--- NOTE | 2020-12-22 14:09 | PC.NUTR ---
Nutrition reassessment: Nurse reports holding meals today per MD request. Continues to be inappropriate for nutrition education for new DM dx at this time d/t critical status. If unable to resume meals within 1-3 days, and/or pt is intubated, and if consistent with goals of care, recommend consideration of enteral nutrition. Would suggest starting Glucerna 1.2 @ 10 ml/hr, increasing by 10 ml/hr q 8 hrs as tolerated, to goal rate of 65 ml/hr, with 100 ml H2O flush q 4 hrs or per MD discretion, to provide 1872 kcal, 94 g protein, and 1856 ml H2O. See full RD assessment for further details.
[2020-12-22] MEDS: FUROsemide 10 mg/mL SDV 2mL 20 MG IVP (14:24)
--- NOTE | 2020-12-22 14:48 | PC.RESP ---
RT Shift Note Frequent safety and respiratory rounds continue. Orders completed as indicated. Patient monitored pre and post treatments throughout shift. Patient [Did.] tolerate treatments appropriately. Condition [.DidNotChange]. Patient and/or payroll representative educated on respiratory treatment and medications. Patient and/or payroll representative [verbalized understanding]. Will continue to monitor patient progress.
--- NOTE | 2020-12-22 17:00 | XRR_ITS ---
PROCEDURE INFORMATION: Exam: XR Chest Exam date and time: 12/22/2020 5:00 PM Age: 35 years old Clinical indication: Other: Barotrauma TECHNIQUE: Imaging protocol: XR of the chest. Views: 1 view. COMPARISON: CR XR chest 1V portable [id number] 12/22/2020 10:38 AM FINDINGS: Lungs: There are extensive bilateral pulmonary alveolar opacities not significantly changed. Pleural spaces: No definite pneumothorax is identified. Heart/Mediastinum: There is mild cardiomegaly. Bones/joints: Unremarkable. Soft tissues: There is soft tissue emphysema in the supraclavicular regions in base of the neck in there is pneumomediastinum in the chest. Allowing for technical differences this is probably not significantly changed from the examination done at 10:40 a.m.. XR/XR chest 1V portable [id number] IMPRESSION: Extensive bilateral pulmonary disease, pneumomediastinum and subcutaneous emphysema not significantly changed from this morning's exam.
[2020-12-22 17:16] LABS: Glucose Point of Care 140 mg/dL (70-110)
--- NOTE | 2020-12-22 18:12 | PC.NURSE ---
[address] Nick and Dr. Haque. Reviewed CXR. Plan to repeat CXR at 1100 to monitor pneumothorax. Reviewed vital signs. Orders to keep sats 85% and above 1040 Called x ray and respiratory therapy due to low O2 sats. Reviewed results with Dr. Haque. [address] Haque about plan of care. Reviewed vital signs. Orders for Lasix and repeat CXR at 1700. [address] Haque to report patients low O2 sat. Orders fir Espinal. Reviewed plan of care.
--- NOTE | 2020-12-22 18:35 | P.PN_ITS ---
Subjective Subjective: Interval history: -Patient seen multiple times today in ICU -He developed a small apical pneumothorax and subcu emphysema and pneumomediastinum -Discontinued BiPAP and placed on high flow nasal cannula 60 L 100% and 15 L nonrebreather -He is saturating 86 to 89%; denied any complaints except soreness in his neck -Other labs and imaging reviewed Medications: Reviewed: Yes Vitals/I&O/Wt Last Vital Signs Temp 98.2 F 12/22/20 15:00 Pulse 117 H 12/22/20 18:00 Resp 29 H 12/22/20 18:00 BP 133/93 12/22/20 17:00 Pulse Ox 85 L 12/22/20 18:00 12/22/20 12/22/20 12/22/20 06:59 14:59 22:59 Intake Total 300 / 300 500 / 800 Output Total 375 / 1725 400 / 400 950 / 1350 Balance -375 / -175.777 -100 / -100 -450 / -550 Physical Exam Narrative: EXAM NARRATIVE: General: Morbidly obese young male, alert, in mild respiratory distress HEENT: conj clear, EOMI, PERRL, mmm, Neck: supple, no meningismus, subcutaneous crepitations noted around the neck and anterior chest wall Heme: no cervical LAP Pulmonary: Bilateral diffuse coarse crepitations Cardiovascular: rrr, nl s1s2, no mrg Abdomen: soft, nt, nd, no r/g, bs+ Extremities: pulses +, no edema, no c/c : no CVA tenderness Skin: intact, no rash MSK: no back or neck pain Neurologic: grossly intact Urinary Catheter Management^: Espinal: Cath Placed During This Visit: yes Reason for Continuing Indwelling Catheter: Accurate Measurement of Urinary Output in Critically Ill Patients Urinary Catheter Date of Insertion: 12/22/20 Urinary Catheter Time of Insertion: 15:33 Data : 12/22/20 05:30 12/22/20 05:30 Other Labs: Laboratory Results WBC 13.8 10^3/uL (4.0-10.0) H 12/22/20 05:30 RBC 5.35 10^6/uL (4.1-5.3) H 12/22/20 05:30 Hgb 15.9 g/dL (11.7-16.6) 12/22/20 05:30 Hct 47.8 % (42.0-52.0) 12/22/20 05:30 MCV 89.3 fl (80-94) 12/22/20 05:30 MCH 29.7 pg (28.0-34.0) 12/22/20 05:30 MCHC 33.3 g/dL (30.0-36.0) 12/22/20 05:30 RDW 13.0 % (12.1-15.1) 12/22/20 05:30 Plt Count 214 10^3/cmm (130-400) 12/22/20 05:30 MPV 10.7 fL (7.4-10.4) H 12/22/20 05:30 Neut % (Auto) 87.9 % 12/22/20 05:30 Lymph % (Auto) 4.8 % 12/22/20 05:30 [place] % (Auto) 3.4 % 12/22/20 05:30 Eos % (Auto) 1.4 % 12/22/20 05:30 Baso % (Auto) 0.2 % 12/22/20 05:30 Neut # (Auto) 12.17 10^3/uL (1.8-7.7) H 12/22/20 05:30 Lymph # (Auto) 0.7 10^3/uL (0.8-4.8) L 12/22/20 05:30 [place] # (Auto) 0.5 10^3/uL (0.2-0.9) 12/22/20 05:30 Eos # (Auto) 0.2 10^3/uL (0.0-0.8) 12/22/20 05:30 Baso # (Auto) 0.0 10^3/uL (0.0-0.1) 12/22/20 05:30 Nucleated RBC % (auto) 0 % 12/22/20 05:30 Total Counted 100 (0-100) 12/21/20 16:32 Atypical Lymphs % 0.0 % (0-5) 12/21/20 16:32 Absolute Neutrophils 12.8 10^3/cmm (1.4-6.5) H 12/21/20 16:32 Segmented Neutrophils 91 % 12/21/20 16:32 Abs Segm Neuts (Man) 12.6 10/cmm (1.6-7.1) H 12/21/20 16:32 Band Neutrophils 2.0 % 12/21/20 16:32 Abs Band Neuts (Man) 0.3 10^3/cmm (0.0-1.2) 12/21/20 16:32 Absolute Lymphocytes 0.7 10^3/cmm (1.2-3.4) L 12/21/20 16:32 Lymphocytes (Manual) 5 % 12/21/20 16:32 Monocytes (Manual) 1.0 % 12/21/20 16: Absolute Monocytes 0.1 10^3/cmm (0.1-0.6) 12/21/20 16:32 Eosinophils (Manual) 1 % 12/21/20 16: Absolute Eosinophils 0.1 10^3/cmm (0.0-0.7) 12/21/20 16:32 Basophils (Manual) 0.0 % 12/21/20 16: Absolute Basophils 0.0 10^3/cmm (0.0-0.2) 12/21/20 16:32 Nucleated RBCs # 0.0 /100WBC 12/22/20 05:30 Platelet Estimate Normal (Normal) 12/21/20 16:32 Giant Platelets Trace 12/21/20 16:32 D-Dimer 7.18 ug/mIFEU (0-0.59) H 12/21/20 03:45 Specimen Type Arterial 12/22/20 04:47 Sample Site Radial, right 12/22/20 04:47 ABG pH 7.43 (7.35-7.45) 12/22/20 04:47 ABG pCO2 42.0 mmHg (35-45) 12/22/20 04:47 ABG pO2 50.9 mmHg (80.0-100.0) L 12/22/20 04:47 ABG HCO3 28.1 mmol/L (22-26) H 12/22/20 04:47 ABG O2 Saturation 92.4 12/21/20 09:39 ABG Base Excess 3.3 mmol/L (-2.0-2.0) H 12/22/20 04:47 Dewayne Test Pos 12/22/20 04:47 A-a O2 Gradient 68.7 mmHg (5-10) H 12/21/20 09:39 Hematocrit 50.4 % (42-52) 12/22/20 04:47 Hgb O2 Saturation 90.6 % (95-100) L 12/21/20 09:39 Carboxyhemoglobin 1.3 %THgb (0.4-20.1) 12/21/20 09:39 Methemoglobin 0.7 % (0.4-1.5) 12/21/20 09:39 Total Hemoglobin 16.6 g/dL (14-18) 12/21/20 09:39 Sodium 135.0 mmol/L (131-143) 12/21/20 09:39 Potassium 4.4 mmol/L (3.5-5.0) 12/21/20 09:39 Glucose 176.0 mg/dL (70-115) H 12/21/20 09:39 Ionized Calcium 1.1 mmol/L (1.1-1.4) 12/21/20 09:39 O2 Delivery Device Bipap 12/22/20 04:47 O2 Liters/Min 55.0 % 12/16/20 15:03 FiO2 85.0 % 12/22/20 04:47 PEEP 10.0 cmH20 12/22/20 04:47 Mode BiPAP 25/0312/19/20 04:00 Specimen Drawn By lidia 12/19/20 04:00 Battery Assembler ID [email or web address] 12/22/20 04:47 Sodium 134 mmol/L (136-145) L 12/22/20 05:30 Potassium 4.5 mmol/L (3.5-5.1) 12/22/20 05:30 Chloride 97 mmol/L (98-107) L 12/22/20 05:30 Carbon Dioxide 26 mmol/L (22-29) 12/22/20 05:30 Anion Gap 15.5 (5-19) 12/22/20 05:30 BUN 13 mg/dL (6-20) 12/22/20 05:30 Creatinine 0.5 mg/dL (0.7-1.2) L 12/22/20 05:30 GFR Calculation 191.5 mL/min (90-130) H 12/22/20 05:30 Glucose 169 mg/dL (65-115) H 12/22/20 05:30 POC Glucose 140 mg/dL (70-110) H 12/22/20 17:12 Estimat Average Glucose 174 12/17/20 03:20 Hemoglobin A1c 7.7 % (4.0-6.0) H 12/17/20 03:20 Calculated Osmolality 282 mOsm/kg (285-295) L 12/22/20 05:30 Lactic Acid 1.1 mmol/L (0.5-2.2) 12/14/20 15:29 Calcium 8.0 mg/dL (8.5-10.5) L 12/22/20 05:30 Magnesium 2.0 mg/dL (1.7-2.3) 12/21/20 20:54 Total Bilirubin 0.9 mg/dL (0.15-1.2) 12/21/20 20:54 AST 50 U/L (0-40) H 12/21/20 20:54 ALT 38 U/L (0-41) 12/21/20 20:54 Alkaline Phosphatase 109 IU/L (40-130) 12/21/20 20:54 Lactate Dehydrogenase 924 U/L (135-225) H 12/19/20 05:13 Troponin T Gen 5 ng/L 6 ng/L (0-15) 12/14/20 15:29 C-Reactive Protein 7.2 mg/L (0.0-4.9) H 12/21/20 03:45 NT-Pro-B Natriuret Pep 11 pg/mL (0-125) 12/15/20 04:55 Total Protein 6.3 g/dL (6.6-8.7) L 12/21/20 20:54 Albumin 3.5 g/dL (3.5-5.2) 12/21/20 20:54 Globulin 2.8 g/dL (1.3-4.6) 12/21/20 20:54 Procalcitonin 0.15 ng/mL (0-0.5) 12/21/20 03:45 Urine Opiates Screen Positive ng/mL (Negative) H 12/20/20 13:00 Ur Barbiturates Screen Negative ng/mL (Negative) 12/20/20 13:00 Ur Phencyclidine Scrn Negative ng/mL (Negative) 12/20/20 13:00 Ur Amphetamines Screen Negative ng/mL (Negative) 12/20/20 13:00 U Benzodiazepines Scrn Negative ng/mL (Negative) 12/20/20 13:00 Urine Cocaine Screen Negative ng/mL (Negative) 12/20/20 13:00 U Marijuana (THC) Screen Negative ng/mL (Negative) 12/20/20 13:00 Nasal/Oral COVID-19 PCR Detected H 12/14/20 14:45 SARS-CoV-2 Ag (Rapid) Negative (Negative) 12/14/20 14:45 Impressions Chest CTA 12/18/20 08:23 IMPRESSION: 1. Proximal main pulmonary arteries are normal. No evidence of proximal pulmonary embolus. Distal vessels not well evaluated due to body habitus and breathing artifact. 2. Progressed diffuse bilateral hazy groundglass infiltrates with more confluence today. Findings suspicious for COVID 19 pneumonia. 3. Prominent AP window, hilar and subcarinal lymph nodes likely reactive. 4. Hepatomegaly and mild splenomegaly. Chest X-Ray 12/22/20 17:00 IMPRESSION: Extensive bilateral pulmonary disease, pneumomediastinum and subcutaneous emphysema not significantly changed from this morning's exam. A&P Assessment and plan (1) Acute respiratory failure with hypoxia: Status: Acute (2) Acute respiratory distress syndrome (ARDS) due to 2019 novel coronavirus: Status: Acute (3) Morbid obesity: Status: Acute (4) Uncontrolled blood glucose: Status: Acute (5) Goals of care, counseling/discussion: Status: Acute (6) Diabetes: Status: Acute Qualifiers: Diabetes mellitus type: type 2 Diabetes mellitus [facility] insulin use: without [facility] use Diabetes mellitus complication status: without complication Qualified Code(s): E11.9 - Type 2 diabetes mellitus without complications (7) Occult blood positive stool: Status: Acute (8) Suspected pulmonary embolism: Status: Acute (9) Acquired pneumomediastinum: Status: Acute (10) Barotrauma: Status: Acute (11) Subcutaneous emphysema, non-traumatic: Status: Acute (12) Pneumothorax on right: Status: Acute #Acute hypoxic respiratory failure secondary to ARDS due to COVID-19 pneumonia #Nontraumatic small right-sided apical pneumothorax, pneumomediastinum and ex tensive subcutaneous emphysema #Morbid obesity with BMI 54 #Uncontrolled sugars-A1c 7.7-newly diagnosed diabetes #Deranged LFTs-likely secondary to Covid -Lying in bed, reported no complaints except soreness of his neck -Due to apical pneumo, pneumomediastinum and extensive subcutaneous emphysema- discontinued BiPAP and placed on high flow nasal cannula 60 L 100% and 15 L nonrebreather mask-patient is saturating about 86 to 89% -Chest X-Ray 12/22/20 17:00:Extensive bilateral pulmonary disease, pneumomediastinum and subcutaneous emphysema not significantly changed from this morning's exam. No definite pneumothorax seen. -ABG today morning 7.4 /50/28 while on BiPAP 16/10 FiO2 85% -Completed 5-day remdesivir protocol and dexamethasone 6 mg daily for 10 days- started 12/14/2020 -S/p one dose Tocilizumab 12/15/2020; CRP 169> 63 > 28 > 14 > 7.2 -On scheduled Pulmicort and DuoNeb inhalers -Completed 7-day course of empiric Levaquin 750 mg p.o. daily -Blood cultures so far negative, procalcitonin negative, sputum Gram stain - normal jason - CT chest on 12/14/2020-negative for PE but changes consistent with moderate to severe bilateral COVID-19 pneumonia- - D-dimer increased significantly compared admission-Anticoagulation increase to full dose and repeat CTA did not show any PE in the proximal main pulmonary arteries, but distal vessels were not well visualized and bilateral lower extremity Doppler was also negative -Currently on full dose anticoagulation for suspected PE/DVT as D-dimer was high and cannot rule out PE in distal vessels -Currently on regular diet -New onset diabetes A1c 7.7-patient also on steroids- sugars moderately controlled-on Lantus 42 twice daily and continue scale coverage -Improving LFTs -Full code -Continue close clinical monitoring for his respiratory status and is at high risk for intubation #Stool occult positive -Last H&H on 12/19/2020 -Repeat CBC today stable -Patient is on steroids and also anticoagulation -Currently on Protonix 40 mg p.o. daily -If there is drop in H&H-stop anticoagulation and transfuse to keep H&H greater than 10/28 -Based on his morbid obesity-patient might have coexisting obstructive sleep apnea and obesity hypoventilation syndrome-recommended BiPAP at nighttime and plan for sleep study as outpatient -At this point of time patient is saturating 86 to 89% on high flow nasal cannula 60 L 100% and 15 L nonrebreather, explained that he is at high risk for intubation and related complications with any indication of worsening respiratory distress and dropping saturations-he verbalized understanding and states that he is breathing is currently good and agreed for intubation if his breathing becomes difficult -Hospitalist updated patient's about the medical condition and impending respiratory failure which might require emergency intubation Recommendations conveyed to hospitalist taking care of the patient, RN and RT taking care of the patient Attestations Medical Necessity Statement*: Acute hypoxic respiratory failure secondary to ARDS due to COVID-19 pneumonia requiring high flow oxygen 100% complicated by pneumomediastinum and subcu emphysema-impending respiratory failure-need close respiratory monitoring in ICU for possible intubation if patient deteriorates from here. Time Spent in Patient Care: Greater than 35 minutes (>than 50% of time spent in counselling and/or direct pt care on unit) . Critical Care Time: Critical Care Time (min): 45 Coding Level of Care Code Established Pt Acute English And Reading Instructor for Chg Fwd Patient Type Established History Comprehensive Exam Comprehensive Medical Decision Making High Complexity Diagnoses Acute respiratory failure with hypoxia J96.01 Acute respiratory distress syndrome (ARDS) due to 2019 novel coronavirus U07.1; J80 Morbid obesity E66.01 Uncontrolled blood glucose R73.09 Goals of care, counseling/discussion Z71.89 Diabetes E11.9 Diabetes mellitus type: type 2 Diabetes mellitus [facility] insulin use: without exterminator helper use Diabetes mellitus complication status: without complication Occult blood positive stool R19.5 Suspected pulmonary embolism R09.89 Acquired pneumomediastinum J98.2 Barotrauma T70.29XA Subcutaneous emphysema, non-traumatic J98.2 Pneumothorax on right J93.9 Time Spent (min) 45
[2020-12-22 18:36] LABS: Blood Gas Operator Identificat JB; Blood Gas Sample Site ARTLINE
--- NOTE | 2020-12-22 18:38 | PC.NURSE ---
1820 Dr. Haque at bedside. Reviewed vital signs and CXR. Will continue to monitor.
[2020-12-22 19:20] LABS: ABG PCO2 37.2 mmHg (35-45); ABG PH Result 7.47 (7.35-7.45); Arterial Blood Gas Hematocrit 49.9 % (42-52); Base Excess ABG 3.6 mmol/L (-2.0-2.0); Blood Gas Allen Test Pos; Blood Gas Sample Site Radial, right; Blood Gas Sample Type Arterial; HCO3 ABG 27.2 mmol/L (22-26); Oxygen Device NRB; PO2 ABG 52.4 mmHg (80.0-100.0)
[2020-12-22 21:09] LABS: Glucose Point of Care 137 mg/dL (70-110)
[2020-12-22] MEDS: dexamethasone 4 mg/mL INJ 2 MG IVP (21:38)
[2020-12-23] VITALS (10 sets, daily range): BP systolic 73–189; BP diastolic 48–118; PULSE 80–154; RESP 28–29; O2SAT 56–86
[2020-12-23] MEDS: propofol 1,000 MG/100 ML INJ 54.43 MG IV ×2 (01:00→02:45)
[2020-12-23] MEDS: cisatracurium 100 MG in sodium chloride 0.9% 50 ML IV (01:00)
--- NOTE | 2020-12-23 01:46 | XRR_ITS ---
PROCEDURE INFORMATION: Exam: XR Chest Exam date and time: 12/23/2020 1:46 AM Age: 35 years old Clinical indication: Device placement; Ett placement (vent status); Patient HX: Check S/P intubation. TECHNIQUE: Imaging protocol: XR of the chest. Views: 1 view. COMPARISON: CR XR chest 1V portable [id number] 12/22/2020 5:23 PM FINDINGS: Tubes, catheters and devices: There has been interval placement of an endotracheal tube with its tip 5.1 cm above the jason. Lungs: Stable consolidation throughout both lungs. Pleural spaces: Unremarkable. No pleural effusion. No pneumothorax. Heart/Mediastinum: The cardiac silhouette is obscured. Bones/joints: Unremarkable. Soft tissues: There is air in the soft tissues tracking up the neck. Pneumomediastinum seen on the previous exam is not as apparent on the current exam. XR/XR chest 1V portable [id number] IMPRESSION: Endotracheal tube in appropriate position.
[2020-12-23] MEDS: midazolam 1 mg/mL INJ 2 mL 2 MG IVP (01:50)
[2020-12-23] MEDS: dextrose 5 % 500 ML 100 ML IV (01:54)
[2020-12-23] MEDS: ipratropium-albuterol 3 mL Neb INHALATION ×2 (02:35→05:08)
[2020-12-23] MEDS: propofol 10 mg/mL SDV 20 mL 200 MG IVP (02:42)
--- NOTE | 2020-12-23 03:10 | XRR_ITS ---
PROCEDURE INFORMATION: Exam: XR Chest Exam date and time: 12/23/2020 3:10 AM Age: 35 years old Clinical indication: Other vascular access device placement or adjustment; Central line, non-tunnelled; Patient HX: Check S/P central line placement. PT intubated and under manual bagging ventilation at time of exposure. TECHNIQUE: Imaging protocol: XR of the chest. Views: 1 view. COMPARISON: CR XR chest 1V portable [id number] 12/23/2020 1:30 AM FINDINGS: Tubes, catheters and devices: There has been interval placement a right internal jugular central venous line with its tip projecting over the cardiac silhouette, presumably in the right atrium. Endotracheal tube in stable position. Lungs: There is improved aeration of the upper lungs. There is a small right apical pneumothorax which is unchanged. Stable consolidation throughout both lungs. Pleural spaces: See Lungs finding. Heart/Mediastinum: Unremarkable. No cardiomegaly. Bones/joints: Unremarkable. XR/XR chest 1V portable [id number] IMPRESSION: Support lines and tubes in appropriate positions. Stable consolidation throughout both lungs and small right apical pneumothorax.
[2020-12-23] MEDS: FUROsemide 10 mg/mL SDV 4mL 40 MG IVP ×2 (03:30→05:28)
[2020-12-23 03:38] LABS: Hematocrit 53.8 % (42.0-52.0); Hemoglobin 16.9 g/dL (11.7-16.6); Mean Corpuscular HGB Conc 31.4 g/dL (30.0-36.0); Mean Corpuscular Hemoglobin 30.2 pg (28.0-34.0); Mean Corpuscular Volume 96.1 fl (80-94); Mean Platelet Volume 10.9 fL (7.4-10.4); Platelet Count 245 10^3/cmm (130-400); Red Cell Distribution Width 13.3 % (12.1-15.1)
[2020-12-23 03:58] LABS: Albumin Level 3.2 g/dL (3.5-5.2); Alkaline Phosphatase 147 IU/L (40-130); Blood Urea Nitrogen 13 mg/dL (6-20); C Reactive Protein 27.5 mg/L (0.0-4.9); Calcium 7.9 mg/dL (8.5-10.5); Carbon Dioxide 16 mmol/L (22-29); Chloride 84 mmol/L (98-107); Creatine Phosphokinase 200 U/L (39-308); Globulin 2.8 g/dL (1.3-4.6); Glomerular Filtration Rate 69.7 mL/min (90-130); Glucose 382 mg/dL (65-115); Magnesium 3.3 mg/dL (1.7-2.3); Osmolality Calculated 276 mOsm/kg (285-295); Sodium 125 mmol/L (136-145); Total Bilirubin 1.3 mg/dL (0.15-1.2)
[2020-12-23 03:59] LABS: Slide Review Slide Review Perform
[2020-12-23 04:03] LABS: Absolute Eosinophils 1.9 10^3/cmm (0.0-0.7); Absolute Neutrophil 28.2 10^3/cmm (1.4-6.5); Absolute Segmented Neutrophil 23.5 10/cmm (1.6-7.1); Band Neutrophils Absolute 4.7 10^3/cmm (0.0-1.2); Eosinophils 5 %; Lymphocytes 6 %; Lymphocytes Absolute 5.5 10^3/cmm (1.2-3.4); Monocytes Absolute 0.8 10^3/cmm (0.1-0.6); Platelet Estimate Normal (Normal); Segmented Neutrophils 60 %; Total Cells Counted 100 (0-100); White Blood Count 39.1 10^3/uL (4.0-10.0)
[2020-12-23 04:04] LABS: Anion Gap 32.6 (5-19); Potassium 7.6 mmol/L (3.5-5.1)
[2020-12-23 04:05] LABS: Alanine Aminotransferase 70 U/L (0-41); Aspartate Amino Transferase 97 U/L (0-40); Phosphorus 13.9 mg/dL (2.5-4.5); Procalcitonin 0.33 ng/mL (0-0.5)
[2020-12-23] MEDS: calcium gluconate 0.1 gm/mL 10% SDV 10mL 1 GM IVP (04:14)
--- NOTE | 2020-12-23 04:30 | PC.NURSE ---
Addendum entered by Zackery Christiansen RN 12/23/20 08:07: The patient had a heated HiFLO nasal cannula and also a non-rebreather on. His oxygen saturation was anywhere between 85-86% to start. The patient gradually dropped between 80-83%. Original Note: At the beginning of shift the patient had a heated HiFLO nasal cannula Dr. Santiago was notified between [id number] that the patient was saturating in the low 80's and would probably need to me intubated. Earlier in the shift the had come by to see her and before she left she told me to call her if her had to be intubated. I informed her that if we came to that decision, we would contact her after intubation. Before the physician arrived I talked with Finn Lawson) about intubation, and asked if he was okay with it. He confirmed that he was okay with it and that he wanted to do anything to get himself better. After talking with Dr. Santiago he informed us that Dr. Lane wanted us to go ahead and intubate the patient. Dr. Velázquez with anesthesiology came by to perform the intubation, and was successful with placement. The patient remained anywhere from the 40's to as high as 70% for his oxygenation, but never went any higher up. Multiple drips were started and we switched between bagging him and hooking the patient back up to the ventilator. I contacted the Donny, and informed here that she needed to come in to be with her spouse. The arrived and Dr. Santiago stepped out to talk with the spouse of her 's deteriorating condition. Shortly after this conversation took place, we lost a pulse on the patient at 0342, notified of a code blue, and starting coding. The time of was 413, after the made her wishes clear to Dr. Santiago that she wanted all care to cease. [facility] was notified at 0450. Reference number was [id number]. The patient was not a candidate for donation and they informed me that the body could be released. Donny Don, the spouse, also signed the body transfer record.
--- NOTE | 2020-12-23 04:31 | PM.MISC ---
Miscellaneous Note Purpose of Documentation: Critical care progress note Ricardo Sanz, 35-year-old male, history of COVID-19 pneumonia, with acute respiratory distress syndrome, I had seen patient multiple times throughout the evening, he remitted on high flow with nonrebreather, 100%, 60 L, patient was seen with in the room, patient was very agreeable for intubation if required, but he would like us to avoid it as much as possible, his oxygen saturations were chronically in the low 80s, typically between 84-85, with heart rates in the 110s to 120s, sinus tachycardia, patient was sitting up in bed, alert oriented x3. At roughly 12:54 AM 12/23/2020, nursing staff reported that patient was getting tired, becoming more somnolent, so decision was made with patient, pulmonary team, and I to intubate patient. We had discussed the risks and benefits of intubation mechanical ventilation with patient's, he voiced understanding, all questions answered, agreed to proceed with elective intubation. Dr. Velázquez from anesthesia came in intubated patients, etomidate and succinylcholine was used, patient was successfully intubated, ET tube had to be repositioned, to 29 cm, chest x-ray confirmed proper position, equal sounds bilaterally, patient was started on propofol, Versed, fentanyl for sedation. Remained in sinus tachycardia, heart rates in the 120s, normotensive, patient had episodes of agitation, requiring bolus of propofol, however continued to have episodes of agitation, Versed fentanyl propofol for [place] were titrated, however patient continued to have agitation, and desaturations of his oxygen saturation to the low 40s, he was given a bolus of rocuronium. Patient was bagged by respiratory therapy staff, his oxygen saturations would go up into the high 60s, but would drop back down to the low 40s s, intermittently bagged, and placed back on the ventilator at times patient was started on Nimbex. At this point he was on significant doses of fentanyl, propofol, Versed, on Nimbex, was being bagged by physical therapy staff, however he continued to have oxygen saturations in the low 50s s, heart rates now started to elevate into the high 170s, with appearance of NSVT, versus sinus tachycardia, organized rhythm, he was given an 150 amiodarone bolus, started on amiodarone drip. Patient's O2 sats remained in the 50s, periodically dropping down to the low 40s, with periodically placed back on the ventilator, 100% FiO2, tidal volume 350, PEEP initially of 12 then upward titrated to 14. He had a central line also placed by emergency room physician. Patient was intermittently bagged and ventilated over the next hour, he was also given nebulized milrinone without any significant benefit. He continued to have episodes of NSVT, heart rates up into the high 160s, was given another amiodarone bolus, without any response, was given a lidocaine drip, and started on a lidocaine drip. Heart rates improved heart rates improved into the low 100s, normal sinus rhythm. Patient was also given 40 mg IV Lasix twice, for concern for pulmonary edema. Patient was on lidocaine drip, amiodarone drip, Versed drip, propofol, fentanyl, will be intermittently bagged and mechanically ventilated with O2 sats remaining in the low 50s, patient's O2 oxygen saturations for the majority of the time in the low 50s since intubation, for the last 3 hours. Patient's presented to the ICU, I discussed the case with her, I showed her patient's x-rays, he has severe acute respiratory distress syndrome, his lungs have become fibrotic, the elasticity of his lungs have decreased, and his oxygenation ability is significantly impaired, making it difficult for us to oxygenate his bloodstream. In addition his lungs are quite stiff, given his acute respiratory distress syndrome, and the likelihood of him having recovery is fairly unlikely. I discussed my concerns that as his oxygen saturations have remained in the low 50s for the last 3 hours since intubation, he is having ongoing anoxic brain injury, and the likelihood of him having a meaningful recovery is fairly unlikely, but I can continue all interventions, given his young age of 35, I can continue all my interventions to give him a chance. However his significant risk factor is morbid obesity BMI 54, is making mechanical ventilation challenging, and expressed my concerns that I felt he has a high risk of cardiac arrest, cardiac arrhythmia, poor outcome, as I felt that it would be very unlikely that he could have any meaningful recovery for such prolonged hypoxia, and that he has high risk of arrhythmia and poor outcome. However after discussing the risk and benefits, patients voiced understanding, all questions answered, agreed to proceed with all medical interventions, full code. Patient developed hypotensive episodes, his drips were stopped, was started on 20 of Levophed, maps hovered around 60-65, oxygen saturations would periodically drop into the low 40s, but would stay in the low 50s was now being bagged by physical therapy staff, his blood pressure rebounded, was placed back on fentanyl, Versed, Nimbex, kept on Levophed 20, heart rates rebounded to the high 140s, sinus tachycardia most of the time, however did have episodes of NSVT. Patient continue to develop significant episodes of hypotension, requiring levo fed to be upward titrated to 50, was also started on vasopressin, O2 sats now in the low 40s to 50s, patient started to develop significant bradycardia, heart rates in the low 40s, no blocks on telemetry. Patient went into asystole, no pulse, CPR was initiated, at 3:42 AM. He received a total of 9 mg of epi was placed on epinephrine drip, received 3 A of bicarb, 2 g of mag, for his potassium of 7.6 received 1 g of calcium gluconate, 1 g of calcium chloride, 10 units of insulin with D50, patient periodically would have a pulse, would have a measurable blood pressure, and would have irregular rhythm, junctional rhythm, at times an organized rhythm, but would lose his pulse, lung sounds equal bilaterally, patient was having art line placed by ER physician. Patient's family was outside, after 30 minutes of CPR, I stepped out and discussed with family members as CPR was being resumed, patient's says that he is gone, and she does not want any more CPR, she wants him to pass away comfortably. I confirmed with the patient's that she wants us to stop CPR, she agreed, CPR was discontinued, patient for 0414 am
[2020-12-23] MEDS: rocuronium 10 mg/mL INJ 5mL IVP (05:17)
[2020-12-23] MEDS: succinylcholine 20 mg/mL SDV 10mL IVP (05:18)
[2020-12-23] MEDS: lidocaine drip 2,000 MG/500 ML PREMIX 15 MG IV (05:22)
[2020-12-23] MEDS: EPINEPHrine 2.5 MG in sodium chloride 0.9% 250 ML 121.2 MG IV (05:30)
--- NOTE | 2020-12-23 06:05 | P.PNCC_ITS ---
Critical Care Event Note Critical Care Event Responded to assist with cardiac arrest called overhead. Dr. Santiago in the room and he served as primary physician/body service team member. I assisted and provided primary bedside cardiac ultrasonography with interpretation for the purpose of determining best resuscitative care in this critically ill patient who is intermittently in cardiac arrest. Critical Care Time Critical Care Time: Code activated: Yes Critical Care Time (min): 35 Additional information about critical care time: Patient critically ill with Covid pneumonia status post intubation, central line, remaining hypoxemic despite maximal support. Subsequently went into cardiac arrest. I personally performed and interpreted bedside ultrasonography in order to assist with critical medical treatments. Additionally I provided assistance in direct patient care to Dr. Santiago. Procedures Arterial Line Size (Gauge): 20 Technique used: guide wire technique Post-Procedure: dry sterile dressing placed Patient tolerated procedure: other (Patient critically ill intermittently in cardiac arrest however no apparent complication or worsening from procedure.) Complications: none Site: right and radial Additional comments: Performed under emergent circumstances in between episodes of cardiac arrest Central Line Placement^ Right IJ: Time out performed: Yes Patient placed on monitor/pulse ox: Yes MD prep: mask, gown and gloves Central line prep: Chlorhexidine scrub and sterile drapes applied Ultrasound used for placement: Yes Central line lumen inserted: triple Post procedure: sutured in place, good blood return, all ports aspirated, flushed, capped and sterile dressing applied Post procedure x-ray: tip of catheter in good position Patient tolerated procedure: other (Patient critically ill throughout procedure however this proceeded procedure, no apparent immediate decompensation from procedure.) Complications: none Additional comments: Performed under emergent circumstances, patient intub ated and unable to consent. Patient hypoxemic prior to procedure. Coding Level of Care Code Acute Chronograph Operator for Lucia Abdul
--- NOTE | 2020-12-23 06:07 | PC.NURSE ---
Code Event: Called Dr. Santiago for Patients continuing desaturation. Dr. Santiago called Dr. Velázquez anesthesia to intubate. Patient was intubated successfully. After intubation patient was never able to recover oxygen saturation. Dr. Santiago remained bedside. Patient continued to desat even after being hooked to vent at 100% with intermitting bagging via RT. Pulse began to slow and O2 dropped, CPR initiated. 0342. 0343 Epi in 0344 1 amp bicarb 0345 pulse check 0346 epi in, vasopressin started, continued compressions 0348 pulse check, pulse lost 0349 epi in pulse 114 0351 pulse check, 0 pulse 0352 epi in, 2 grams of magnesium in 0353 pulse check, pulse present, wide QRS 80's 0354-U/S cardiac movement organized 62% O2 sat 0356-60's pulse irregular 0358-60's faint pulse, pauses, epi in 0400- pulse check, felt, junctional rhythm 0401-53% O2, no b/p 0402 compressions resumed 0404-pulse check, organized rhythm, pulse lost. 0405-Epi in 0406- pulse check, pulse present rate of 80's, epi gtt started 0407-2 amp bicarb given 0408-compressions resumed 0409-epi in 0410-junctional rythem 0411-calcium chloride in, unable to bag, due to resistance in patients chest 0412 -compressions resumed 0413 -epi, in 0414 -1 gram calcium gluconate. Time of called by Dr. Santiago.
--- NOTE | 2020-12-23 07:55 | PM.DDS ---
Discharge Providers DDS Date of Admission: 12/14/20 22:15 Date Summary Completed: 12/23/20 Attending Provider at Admission: Flory Nick MD Time of : 04:14 Attending Provider at Discharge: Flory Nick MD DS Diagnoses Hospital Diagnoses (1) Acute respiratory failure with hypoxia: (2) Acute respiratory distress syndrome (ARDS) due to 2019 novel coronavirus: (3) Morbid obesity: (4) Uncontrolled blood glucose: (5) Goals of care, counseling/discussion: (6) Diabetes: Qualifiers: Diabetes mellitus complication status: without complication Diabetes mellitus termite renewal inspector insulin use: without termite renewal inspector use Diabetes mellitus type: type 2 Qualified Code(s): E11.9 - Type 2 diabetes mellitus without complications (7) Occult blood positive stool: (8) Suspected pulmonary embolism: (9) Acquired pneumomediastinum: (10) Barotrauma: (11) Subcutaneous emphysema, non-traumatic: (12) Pneumothorax on right: Reason for Visit Reason for Visit: LOW 02 Summary Date and Time of Date of : 12/23/20 Time of : 04:14 Summary Summary: Patient was admitted for management of hypoxic respiratory failure secondary to COVID-19. He was admitted to ICU for COVID-19 related hypoxic respiratory failure. He was kept in ICU throughout his hospitalization, brass wind instruments tube bender was consulted, intermittent use of heated high flow and BiPAP. He was given Actemra along remdesivir and steroids. He was kept on empirical dose of Levaquin. Secondary to high D-dimer he was started on therapeutic dose of Lovenox however CTA which was done twice did not reveal PE. He did develop pneumomediastinum with subcutaneous emphysema. He was considered not an ideal candidate for ECMO because of his BMI. His was kept updated on daily basis. 12/22 patient developed respiratory distress distress and became hypoxic, brass wind instruments tube bender recommended intubation, it was done by anesthesia, his saturation did not improve after intubation, patient went into PEA/cardiac arrest, code ran for about 30 to 35 minutes, is at the bedside, she decided to stop resuscitative measures, Pt on 12/23 for 14 a.m. Additional Data Confirmation of as documented by pronouncing clinician: no pulse, no respirations, no heart sounds and pupils fixed and dilated Family: contacted Additional persons at bedside: nursing staff Attending/PCP notified?: I am attending Was code activated?: Yes Autopsy requested?: No Advance directives?: No Hospice patient?: No Discharge Plan Discharge Patient Disposition: Home Condition: Stable Prescriptions: Discontinued Tylenol Extra Strength 500 mg Tablet 1,000 mg PO Q8H PRN (Reason: Pain) RF: 0 Discharge Orders: Discharge Order (Routine); Ordered 12/23/20 Ordered By: Flory Nick Patient Instructions: Opioid Safety DS Attestations Time Spent in /Discharge Care*: less than 30 min Quality - AMI: AMI present?: No Quality - Stroke: CVA present?: No Symptom Onset Unknown: No Quality - VTE: VTE present?: No Deep Vein Thrombosis/Pulmonary Embolism Present on Admission: No Coding Level of Care Code Acute Sports Book Board Attendant for g Fwd Diagnoses Acute respiratory failure with hypoxia J96.01 Acute respiratory distress syndrome (ARDS) due to 2019 novel coronavirus U07.1; J80 Morbid obesity E66.01 Uncontrolled blood glucose R73.09 Goals of care, counseling/discussion Z71.89 Diabetes E11.9 Diabetes mellitus complication status: without complication Diabetes mellitus fci insulin use: without termite renewal inspector use Diabetes mellitus type: type 2 Occult blood positive stool R19.5 Suspected pulmonary embolism R09.89 Acquired pneumomediastinum J98.2 Barotrauma T70.29XA Subcutaneous emphysema, non-traumatic J98.2 Pneumothorax on right J93.9
== END 2020-12-23 04:14 | disposition expired | DRG 208 ==
LOC: ER 14:14 → ICU 12-15 06:39
PROVIDERS: Family Medicine; Internal Medicine Pulmonary Disease; Student in an Organized Health Care Education/Training Program; Admitting Provider Internal Medicine; Emergency Provider Family Medicine; Visit Provider Internal Medicine
DX: U07.1 COVID-19 (principal); J12.82 Pneumonia due to coronavirus disease 2019; J80 Acute respiratory distress syndrome; I26.99 Other pulmonary embolism without acute cor pulmonale; Z68.43 Body mass index [BMI] 50.0-59.9, adult; E66.2 Morbid (severe) obesity with alveolar hypoventilation; J93.9 Pneumothorax, unspecified; G93.1 Anoxic brain damage, not elsewhere classified; I47.1 Supraventricular tachycardia; I10 Essential (primary) hypertension; E66.01 Morbid (severe) obesity due to excess calories; E11.65 Type 2 diabetes mellitus with hyperglycemia; R16.2 Hepatomegaly with splenomegaly, not elsewhere classified; R45.1 Restlessness and agitation; R19.5 Other fecal abnormalities; J98.2 Interstitial emphysema; I46.9 Cardiac arrest, cause unspecified; I95.9 Hypotension, unspecified
CPT/HCPCS: 36415; 36416; 36600; 51702; 71045; 71275; 80048; 80051; 80053; 80306; 82274; 82330; 82550; 82803; 82805; 82962; 83036; 83605; 83615; 83735; 83880; 84100; 84145; 84484; 85007; 85025; 85027; 85378; 86140; 87040; 87070; 87205; 87426; 87635; 87641; 93970; 94640; 94660; 96365; 96372; 96375; 97161; 97530; 99285; J0171; J0282; J0330; J0456; J0610; J0696; J1100; J1650; J1815 ×2; J1940; J2001; J2060; J2250; J2260; J2704; J3010; J3262; J3490; J7050; J7626; Q9967